=== PATIENT | male | born 1965 | race Caucasian/White ===

== ENCOUNTER 2025-03-07 10:27 | Outpatient (CLI) | payer OTHER, SELFPAY ==
--- OUTSIDE RECORDS SUMMARY | 2025-03-07 11:08 | XMS_ITS | Clinical Summary ---
Author Organization [facility] Address [address] [place] [id number] Care Team Providers Care Rural Route Mail Carrier Name Role Phone Unavailable Primary Care Provider Unavailabl e Social History Tobacco Use Types Packs/Day Years Used Date Smoking Tobacco: Never Assessed Sex and Gender Information Value Date Recorded Sex Assigned at Not on file Legal Sex Male 9:19 PM CDT Gender Identity Not on file Sexual Orientation Not on file Plan of Treatment Health Maintenance Due Date Last Done Comments Colorectal Cancer Screening Colonoscopy (10 Years) 1964 Annual Physical 1967 Hepatitis C 1982 DTaP, Tdap and Td Vaccines ( 1 - Tdap) 1983 Zoster Vaccines (1 of 2) 2014 COVID-19 Vaccine ( - 2023-2 5 season) 2024 RSV Immunization or 60+ Years (1 - 1-dose 75+ series) 2039 Meningococcal B Vaccine Aged Out No l onger eligible based on patient's age to complete this topic Meningococcal Vaccine Aged Out No rosalind riya eligible based on patient's age to complete this topic Pneumococcal Vaccine: Pediat rics (0 to 5 Years) and At-Risk Patients (6 to 64 Years) Aged Out No longer eligible b ased on patient's age to complete this topic RSV Immunizations Under 20 Months Aged Out No longer eligible based on patient's age to complete this topic
--- OUTSIDE RECORDS SUMMARY | 2025-03-07 11:08 | XMS_ITS | Continuity of Care Document ---
Author Organization [facility] Address [address] [address] Phone Care Team Providers Care Business Planning Manager Name Role Phone Cachorro Rao MD Unavailable Unavailable Allergies, Adverse Reactions, Alerts Substance Reaction Status Criticality No Known Allergies Active No Inform ation Medications Medication Instructions Dosage Effective Dates (start - stop) Status Comments indomethacin 50 mg capsule take 1 capsule by oral route every day with food 50 MG - Active phenytoin sodium extended 100 mg capsule take 1 capsule by oral route 3 times every day 100 MG - Active allopurinol 300 mg tablet take 1 tablet by oral route every day 300 MG - Active cyclobenzaprine 10 mg tablet take 1 tablet by oral route 3 times every day 10 MG - Active avoid driving or operate machines Neurontin 300 mg capsule take 1 capsule by oral route 3 times every day 300 MG - Active avoid driving or operate machines Lasix 20 mg tablet take 1 tablet by oral route every day 20 MG - Active trazodone 50 mg tablet take 1 tablet by oral route every bedtime after meals 50 MG - Active qhs for insomnia hydrocodone 10 mg-acetaminophen 325 mg tablet take 1 by Oral route every day as needed 1 - Active PRN for pain, avoid driving or operate machines Procedures Procedure Date OFFICE/OUTPATIENT VISIT, EST Advance Directives Directive Yes / No Effective Date File Name No Information Encounters Encounter Description Practice Location Reason(s) For Visit Diagnoses Date Provider Providers Copied on Encounter OFFICE/OUTPA TIENT VISIT, EST [facility], [place], [address], [place], [id number], [place] tel:[phone] [facility] Medicine seizure1 (chief complaint) gout1 (chief complaint) edema1 (chief complaint) insomnia1 (chief complaint) back pain1 (chief complaint) Epilepsy NOSGoutEdemaOther insomniaChronic pain syndromeIdiopathic peripheral autonomic neuropathy [address] Jalen Ivory. [address], [address], [place], [place], [id number] , [place]. tel:[phone] Family History Family Member Type Diagnosis Age At Onset Mother Problem of CVA 65, HTN Father Problem of 74 old age Sister Problem of PVD complicated surg agustina 63 Payers Payer name Insurance type Covered libertarian ID Sahil ochoa(s) [facility] CI [id number] Social History Type Description Quantity Date Captured Comments Alcohol Use Details Caffeine Use Details Unknown Tobacco Use Status Current non-smoker Smoking Status Never smoker Non-Smoking Tobacco Use Details : No Details Available : No Details Available Sex Male Vital Signs Date / Time: Height Weight BMI Pulse Rate Blood Pressure Temperature Respiratory Rate Body Surface Area Head Circumference BMI percentile Pulse Ox Inhaled Ox 11:01 AM 69.00 in 207.60 lbs 30.6 6 kg/m eter (2) 59 /min 110/70 mm[Hg] 98.2 F 16 /min Chief Complaint And Reason For Visit From encounter dated '03/03/2025 11:01'. seizure1 (chief complaint). Description: Pt has history of epilepsy Pt has not had seizure for over5 years .Pt is on phenytoin. gout1 (chief complaint). Description: Pt has chronic gout Pt takes allopurnolol daily. Pt had last gout attack one month ago. edema1 (chief complaint). Description: Pt has LE edema Pt takes lasix daily and donig ok insomnia1 (chief complaint). Description: Pt has chronic insomnia Pt takes trazodone qhs and doing ok back pain1 (chief complaint). Description: Pt has chronic low back pain with neuropathy both feet. Pt takes flexeril and neurontin and norco PRN. His previous doctor left and he has not seen doctor for over one year and he needs medication refilled. Pt states that he has severe arthritis around hisback. Pt denies any loss of bowel or bladder control or saddle area paresthesia Pt has bilateral neuropathy both feet chronically Pt feels cold feet .Pt denies any discoloration or any claudication. Plan Of Treatment Date Type Action Status Appointment Thom Vallejo BOOKED History Of Present Illness Encounter Date Complaint History Of Prese nt Illness back pain1 Pt has chronic l ow back pain with neuropathy both feet. Pt takes flexeril and neurontin and norco PRN. His previous doctor left and he has not seen doctor for over one year and he needs medication refilled. Pt states that he has severe arthritis around his back. Pt denies any loss of bowel or bladder control or saddle area paresthesia Pt has bilateral neuropathy both feet chronically Pt feels cold feet .Pt denies any discoloration or any claudication. insomnia1 Pt has chronic i nsomnia Pt takes trazodone qhs and doing ok edema1 Pt has LE edema Pt takes lasix daily and donig ok gout1 Pt has chronic g out Pt takes allopurnolol daily. Pt had last gout attack one month ago. seizure1 Pt has history o f epilepsy Pt has not had seizure for over 5 years .Pt is on phenytoin. Instructions Date Instruction Additional Infor anandaion No Information Assessments Type Assessment Date assessment Epilepsy NOS assessment Gout assessment Edema assessment Other insomnia assessment Chronic pain syndrome assessment Idiopathic peripheral autonomic neuropathy Mental Status Date Cognitive Assessment Orientation - [place] ed to time, place, person, situation.Normal Orientation
--- OUTSIDE RECORDS SUMMARY | 2025-03-07 11:09 | XMS_ITS | Clinical Summary ---
Author Organization [facility] Address [address] [place] [address] Care Team Providers Care Trust Officer Name Role Phone Ana Lilia Roman MD Primary Care Provider [phone] Source Comments [facility],non-owned Affiliates and Associated Physician Practices is amultpeoples hospitale site organization consisting of ambulatory clinics and hospital sitesin [place], [place], [place] and [place]. This disclosure is being madepursuant to the Care Everywhere program and may not contain all information available regarding this patient. Last updated 18.[facility] Allergies No known active allergies Medications * Be aware that medications may not be up to date on this document. Alwaysverify current medications with the patient. Medication Sig Dispensed Refills Start Date End Date Status albuterol HFA (Proventil; Ventolin; Proair) 108 (90 Base) MCG/ACT inhaler albuterol sulfate HFA 90 mcg/actuation aerosol inhaler INHALE 2 PUFFS BY MOUTH EVERY 4 HOURS NEEDED Active allopurinol (Zyloprim) 300 MG tablet allopurinol 300 mg tablet Active amLODIPine (Norvasc) 5 MG tablet amlodipine 5 mg tablet TAKE 1 TABLET BY MOUTH EVERY DAY Active cyclobenzaprine (Flexeril) 10 MG tablet Take 1 (one) tablet by mouth 3 times daily 09/05/2022 Active furosemide (Lasix) 20 MG tablet furosemide 20 mg tablet Active gabapentin (Neurontin) 300 MG capsule Take 2 (two) capsules by mouth 3 times daily 09/05/2022 Active HYDROcodone-acetami nophen ([place]) 10-325 MG tablet Take 1 (one) tablet by mouth every 6 hours as needed pain 10/25/2022 Active indomethacin (Indocin) 50 MG capsule indomethacin 50 mg capsule TAKE 1 CAPSULE BY MOUTH THREE TIMES DAILY Active naproxen (Naprosyn) 500 MG tablet naproxen 500 mg tablet TAKE 1 TABLET BY MOUTH TWICE DAILY Active pantoprazole EC (Protonix) 40 MG tablet pantoprazole 40 mg tablet,delayed release TAKE 1 TABLET BY MOUTH EVERY DAY Active phenytoin ER (Dilantin) 100 MG capsule Take 1 (one) capsule by mouth 3 times daily 12/12/2021 Active traZODone (Desyrel) 50 MG tablet trazodone 50 mg tablet Active Active Problems Problem Noted Date Diagnosed Date Dizziness 11/15/2022 Essential hypertension 11/15/2022 Gastroesophageal reflux disease 11/15/2022 Gout 11/15/2022 Hypertriglyceridemia 11/15/2022 Neuropathy 11/15/2022 Osteoarthrosis 11/15/2022 Seizure 11/15/2022 Chronic pancreatitis 09/10/2017 Social History Tobacco Use Types Packs/Day Years Used Date Smoking Tobacco: Never Passive Smoke Exposure: Past Smokeless Tobacco: Never Tobacco Cessation:Counseling Given: Not Answered Alcohol Use Standard Drinks/Week Comments Yes 0 (1 standard drink = 0.6 oz pur e alcohol) weekly Sex and Gender Information Value Date Recorded Sex Assigned at Not on file Gender Identity Not on file Sexual Orientation Not on file Last Filed Vital Signs Vital Sign Reading Time Taken Comments Blood Pressure 135/84 11/14/2022 1:08 PM DRAPERY INSTALLER Pulse 67 11/14/2022 1:08 PM DRAPERY INSTALLER Temperature 36.8 C (98.2 F) 11/14/2022 1:08 PM DRAPERY INSTALLER Respiratory Rate - - Oxygen Saturation 100% 11/14/2022 1:08 PM DRAPERY INSTALLER Inhaled Oxygen Concentration - - Weight 92.5 kg (204 lb) 11/14/2022 1:08 PM DRAPERY INSTALLER Height 175.3 cm (5' 9 ) 11/14/2022 1:08 PM DRAPERY INSTALLER Body Mass Index 30.13 11/14/2022 1:08 PM DRAPERY INSTALLER Plan of Treatment Health Maintenance Due Date Last Done Comments COLOGUARD (AGES 45-75) - COL ON CA SCREENING 1964 COLON MONITORING 1964 COLONOSCOPY - COLON CA SCREENING 1964 CT COLONOGRAPHY - COLON CA SCREENING 1964 Colorectal Cancer Screening 1964 FIT - COLON CA SCREENING 1964 FLEX SIG - COLON CA SCREENING 1964 LIPID TESTING 1964 HIV SCREENING 1979 HEPATITIS C SCREENING 11/15/1982 DTAP/TDAP/TD VACCINES (1 - Tdap) 1983 PNEUMOCOCCAL VACCINE 50+ (1 of 1 - PCV) 2014 ZOSTER VACCINE (1 of 2) 2014 SCREENING FOR DIABETES 11/14/2022 COVID-19 VACCINE (1 - 2023-2 5 season) 2024 DEPRESSION SCREENING 11/27/2024 INFLUENZA VACCINE (Season Ended) 2025 Respiratory Syncytial Virus (RSV) Vaccine Pt: or over 60 yrs (1 - 1-dose 75+ series) 2039 HEPATITIS B VACCINE Aged Out No longe r eligible based on patient's age to complete this topic HIB VACCINE Aged Out No longer eligi ble based on patient's age to complete this topic HPV VACCINE Aged Out No longer eligi ble based on patient's age to complete this topic MENINGOCOCCAL (Group B) VACC INE SHARED DECISION-MAKING Aged Out No longer eligibl e based on patient's age to complete this topic MENINGOCOCCAL GROUPS A/C/Y/W VACCINE Aged Out No longer eligible b ased on patient's age to complete this topic PNEUMOCOCCAL VACCINE Aged Out No long er eligible based on patient's age to complete this topic Care Teams Trust Officer Relationship Specialty Start Date End Date Ana Lilia Roman MD [address] [place] [address] [place] [address] PCP - General 09/19/22
--- OUTSIDE RECORDS SUMMARY | 2025-03-07 11:09 | XMS_ITS | Data Portability ---
Author Organization [facility] [employer], Main Office Address [address] [place] [address] Assessment No assessment recorded. Plan of Treatment Reminders Order Date Submit Date Provider Last Modified By Organization Details Last Modified Time Details Appointments None recorded. Lab uric acid, serum or plasma 2023 024 [email or web address] 4 [facility] (Lab), [address] [place], [address], 11:39:20 lipid panel, serum 2023 024 [email or web address] 4 [facility] (Lab), [address] [place], [address], 11:39:36 hepatic function panel, serum 2023 024 4 [facility] (Lab), [address] [place], [address], 11:39:53 PSA, serum or plasma 2023 024 4 [facility] (Lab), [address] [place], [address], 11:40:31 vitamin D, 25-hydroxy, total, serum 2023 024 [email or web address] 4 [facility] (Lab), [address] [place], [address], 11:40:11 ESR (erythrocyt e sedimentati on rate), blood 2023 024 [email or web address] 4 [facility] (Lab), [address] [place], [address], 4 11:43:18 rf (rheumatoid factor), serum 2023 024 4 [facility] (Lab), [address] [place], [address], 4 11:43:34 BRADY (antinuclea r antibodies) screen, serum 2023 024 [email or web address] 4 [facility] (Lab), [address] [place], [address], 4 11:43:52 BMP, serum or plasma 2023 024 [email or web address] [address] 4 [facility] (Lab), [address] [place], [address], 4 11:39:02 ferritin, serum or plasma 2023 024 [email or web address] [address] 4 [facility] (Lab), [address] [place], [address], 4 11:40:50 iron + total iron-bindin g capacity (TIBC), serum 2023 024 [email or web address] [address] 4 [facility] (Lab), [address] [place], [address], 4 11:42:39 CBC w/ auto diff 2023 024 [place] [address] 4 [facility] (Lab), [address] [place], [address], 4 11:42:56 uric acid, serum or plasma 2022 023 [email or web address] 477 [facility] (Lab), [address] [place], [address], 3 07:53:51 lipase, serum or plasma [email or web address] [place] [address] (Lab), [address] [place], [address], 3 07:53:52 amylase, serum or plasma [email or web address] [place] [address] (Lab), [address] [place], [address], 3 07:53:52 lipid panel, serum [address] (Lab), [address] [place], [address], 3 07:53:52 hepatic function panel, serum [email or web address] [place] [address] (Lab), [address] [place], [address], 3 07:53:52 PSA, serum or plasma [address] (Lab), [address] [place], [address], 3 07:53:52 vitamin D, 25-hydroxy, total, serum 2022 0[address] [email or web address] [place] [address] (Lab), [address] [place], [address], 3 07:53:52 BMP, serum or plasma 2022 [facility]23 [facility] [place] [address] (Lab), [address] [place], [address], 3 07:53:51 ferritin, serum or plasma [address] (Lab), [address] [place], [address], 3 07:53:51 iron + total iron-bindin g capacity (TIBC), serum [address] (Lab), [address] [place], [address], 3 07:53:51 CBC w/ auto diff [address] (Lab), [address] [place], [address], 3 07:53:51 Referral ophthalmolo gist referral - Please call patient to schedule an appointment 2023 024 [email or web address] [employer], [address] , [place], [address], 4 08:56:56 otolaryngol ogist referral 2022 023 [email or web address] 3 Abdulaziz Bowers MD, [address], [place], [address], 3 13:52:37 Procedures None recorded. Surgeries None recorded. Imaging None recorded. Medication Orders hydrocodone 10 mg-acetamin ophen 325 mg tablet 2023 024 [id number], [address], [place], [id number], 4 10:56:06 cephalexin 500 mg capsule 2023 024 [email or web address] [facility]40528, [address], [place], [id number], 4 07:47:03 triamcinolo ne acetonide 0.1 % topical cream 2023 024 [facility]28997, [address], [place], [id number], 4 10:56:03 prednisone 20 mg tablet 2023 024 [facility] #83959, [address], [place], [id number], 4 10:56:04 hydrocodone 10 mg-acetamin ophen 325 mg tablet 2022 023 [facility] #95497, [address], [place], [id number], 3 12:45:05 amoxicillin 875 mg tablet 2022 023 [email or web address] [facility] #36845, [address], [place], [id number], 4 10:47:24 Patient TargetsNo targets recorded. Patient InstructionsNo instructions recorded. 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 sinusitis Referring Physician: Ana Lilia Roman [facility] Medicine, Encounter Date: 07/05/2023 Strategic Planning Manager Referral for Pain of left eye Please call patient to schedule an appointment Referring Physician: Ana Lilia Roman [facility] Medicine, Encounter Date: 02/07/2024 Results Created Date Observation Date Name Description Value Unit Range Abnormal Flag Note LastModifiedBy Organization Detail LastModifiedTime 10/24/20 22 10/24/2022 THAO TIN ferritin 137 NG/mL 17.9-4 64 Not Available [facility] (Lab) [address] [place], [address], 10/24/2022 22:50:00 10/24/20 22 10/24/2022 PSA SCREE N PSA medicare screen 2.28 NG/mL 0.00-4 .00 Not Available [facility] (Lab) [address] [place], [address], 10/24/2022 22:22:26 10/24/20 22 10/24/2022 IRON/ TIBC PANEL total iron binding capacity 332 mcg/d L 265-47 5 Not Available [facility] (Lab) [address] [place], [address], 10/24/2022 22:09:27 10/24/20 22 10/24/2022 IRON/ TIBC PANEL % transferrin saturation 23 % 20-55 Not Available [facility] (Lab) [address] [place], [address], 10/24/2022 22:09:27 10/24/20 22 10/24/2022 IRON/ TIBC PANEL unsaturated iron bind capacity 257 mcg/d L 126-38 2 Not Available [facility] (Lab) [address] [place], [address], 10/24/2022 22:09:27 10/24/20 22 10/24/2022 IRON/ TIBC PANEL iron 75 mcg/d L 42-175 Not Available [facility] (Lab) [address] [place], [address], 10/24/2022 22:09:27 10/24/20 22 10/24/2022 VITAM IN D 25-HY DROXY [id number] 30.8 NG/mL 30-100 Vitam in D Statu s: Defic ient: <20 ng/mL Insuf ficie nt: 20-29 ng/mL Suffi cient : 30-10 0 ng/mL Not Available [facility] (Lab) [address] [place], [address], 10/24/2022 22:08:47 10/24/20 22 10/24/2022 CBC/C OMPLE TE BLD COUNT W/DIF F white blood cells 6.9 x10'3 /uL 4.2-10 .8 Not Available [facility] (Lab) [address] [place], [address], 10/24/2022 21:59:07 10/24/20 22 10/24/2022 CBC/C OMPLE TE BLD COUNT W/DIF F red blood cells 4.69 x10'6 /uL 4.10-5 .80 Not Available [facility] (Lab) [address] [place], [address], 10/24/2022 21:59:07 10/24/20 22 10/24/2022 CBC/C OMPLE TE BLD COUNT W/DIF F hemoglobin 14.4 g/dL 13.2-1 7.0 Not Available [facility] (Lab) [address] [place], [address], 10/24/2022 21:59:07 10/24/20 22 10/24/2022 CBC/C OMPLE TE BLD COUNT W/DIF F hematocrit 43.6 % 39.3-5 0.0 Not Available [facility] (Lab) [address] [place], [address], 10/24/2022 21:59:07 10/24/20 22 10/24/2022 CBC/C OMPLE TE BLD COUNT W/DIF F mean red cell volume 93.0 fL 80.0-9 7.0 Not Available [facility] (Lab) [address] [place], [address], 10/24/2022 21:59:07 10/24/20 22 10/24/2022 CBC/C OMPLE TE BLD COUNT W/DIF F mean red cell hemoglobin 30.7 pg 27.0-3 3.0 Not Available [facility] (Lab) [address] [place], [address], 10/24/2022 21:59:07 10/24/20 22 10/24/2022 CBC/C OMPLE TE BLD COUNT W/DIF F mean RBC HGB concentratio n 33.0 g/dL 31.0-3 6.0 Not Available [facility] (Lab) [address] [place], [address], 10/24/2022 21:59:07 10/24/20 22 10/24/2022 CBC/C OMPLE TE BLD COUNT W/DIF F red cell distribution width 14.0 % 11.8-1 5.5 Not Available [facility] (Lab) [address] [place], [address], 10/24/2022 21:59:07 10/24/20 22 10/24/2022 CBC/C OMPLE TE BLD COUNT W/DIF F platelets 206 x10'3 /uL 150-40 0 Not Available [facility] (Lab) [address] [place], [address], 10/24/2022 21:59:07 10/24/20 22 10/24/2022 CBC/C OMPLE TE BLD COUNT W/DIF F mean platelet volume 11.5 fL 9.0-12 .4 Not Available [facility] (Lab) [address] [place], [address], 10/24/2022 21:59:07 10/24/20 22 10/24/2022 CBC/C OMPLE TE BLD COUNT W/DIF F neutrophils 64.0 % 39.0-7 2.0 Not Available [facility] (Lab) [address] [place], [address], 10/24/2022 21:59:07 10/24/20 22 10/24/2022 CBC/C OMPLE TE BLD COUNT W/DIF F lymphocytes 24.9 % 16.0-4 7.0 Not Available [facility] (Lab) [address] [place], [address], 10/24/2022 21:59:07 10/24/20 22 10/24/2022 CBC/C OMPLE TE BLD COUNT W/DIF F monocytes 7.5 % 5.0-12 .0 Not Available [facility] (Lab) [address] [place], [address], 10/24/2022 21:59:07 10/24/20 22 10/24/2022 CBC/C OMPLE TE BLD COUNT W/DIF F eosinophils 2.7 % 1.0-7. 0 Not Available [facility] (Lab) [address] [place], [address], 10/24/2022 21:59:07 10/24/20 22 10/24/2022 CBC/C OMPLE TE BLD COUNT W/DIF F basophils 0.6 % 0.0-2. 0 Not Available [facility] (Lab) [address] [place], [address], 10/24/2022 21:59:07 10/24/20 22 10/24/2022 CBC/C OMPLE TE BLD COUNT W/DIF F immature granulocytes 0.3 % 0.00-0 .50 Not Available [facility] (Lab) [address] [place], [address], 10/24/2022 21:59:07 10/24/20 22 10/24/2022 CBC/C OMPLE TE BLD COUNT W/DIF F neutrophils, absolute count 4.44 x10'3 /uL 1.5-8. 0 Not Available [facility] (Lab) [address] [place], [address], 10/24/2022 21:59:07 10/24/20 22 10/24/2022 CBC/C OMPLE TE BLD COUNT W/DIF F lymphocytes, absolute count 1.73 x10'3 /uL 1.07-3 .43 Not Available [facility] (Lab) [address] [place], [address], 10/24/2022 21:59:07 10/24/20 22 10/24/2022 CBC/C OMPLE TE BLD COUNT W/DIF F monocytes, absolute count 0.52 x10'3 /uL 0.29-0 .99 Not Available [facility] (Lab) [address] [place], [address], 10/24/2022 21:59:07 10/24/20 22 10/24/2022 CBC/C OMPLE TE BLD COUNT W/DIF F eosinophils, absolute count 0.19 x10'3 /uL 0.02-0 .53 Not Available [facility] (Lab) [address] [place], [address], 10/24/2022 21:59:07 10/24/20 22 10/24/2022 CBC/C OMPLE TE BLD COUNT W/DIF F basophils, absolute count 0.04 x10'3 /uL 0.01-0 .08 Not Available [facility] (Lab) [address] [place], [address], 10/24/2022 21:59:07 10/24/20 22 10/24/2022 CBC/C OMPLE TE BLD COUNT W/DIF F immature granulocytes ,absolute 0.02 x10'3 /uL 0.00-0 .05 Not Available [facility] (Lab) [address] [place], [address], 10/24/2022 21:59:07 10/24/20 22 10/24/2022 CBC/C OMPLE TE BLD COUNT W/DIF F nucleated red blood cells 0.0 % -0 Not Available [facility] (Lab) [address] [place], [address], 10/24/2022 21:59:07 10/24/20 22 10/24/2022 CBC/C OMPLE TE BLD COUNT W/DIF F NRBC# 0.00 x10'3 /uL Not Available [facility] (Lab) [address] [place], [address], 10/24/2022 21:59:07 10/24/20 22 10/24/2022 HEPAT IC/LI LOW PANEL alkaline phosphatase 82 U/L 38-126 Not Available [facility] (Lab) [address] [place], [address], 10/24/2022 21:48:00 10/24/20 22 10/24/2022 HEPAT IC/LI LOW PANEL alanine aminotransfe rase 21 U/L 0-50 Not Available [facility] (Lab) [address] [place], [address], 10/24/2022 21:48:00 10/24/20 22 10/24/2022 HEPAT IC/LI LOW PANEL aspartate aminotransfe rase 21 U/L 15-46 Not Available [facility] (Lab) [address] [place], [address], 10/24/2022 21:48:00 10/24/20 22 10/24/2022 HEPAT IC/LI LOW PANEL bilirubin, total 0.40 mg/dL 0.20-1 .30 Not Available [facility] (Lab) [address] [place], [address], 10/24/2022 21:48:00 10/24/20 22 10/24/2022 HEPAT IC/LI LOW PANEL bilirubin, conjugated (direct) 0.00 mg/dL 0.00-0 .30 Not Available [facility] (Lab) [address] [place], [address], 10/24/2022 21:48:00 10/24/20 22 10/24/2022 HEPAT IC/LI LOW PANEL biliurubin,u ncong. (indirect) 0.20 mg/dL 0.00-1 .1 Not Available [facility] (Lab) [address] [place], [address], 10/24/2022 21:48:00 10/24/20 22 10/24/2022 HEPAT IC/LI LOW PANEL total protein 6.3 g/dL 6.3-8. 2 Not Available [facility] (Lab) [address] [place], [address], 10/24/2022 21:48:00 10/24/20 22 10/24/2022 HEPAT IC/LI LOW PANEL albumin 3.9 g/dL 3.4-5. 0 Not Available [facility] (Lab) [address] [place], [address], 10/24/2022 21:48:00 10/24/20 22 10/24/2022 HEPAT IC/LI LOW PANEL globulin 2.4 g/dL 2.6-4. 2 low Not Available [facility] (Lab) [address] [place], [address], 10/24/2022 21:48:00 10/24/20 22 10/24/2022 HEPAT IC/LI LOW PANEL A/G ratio 1.6 ratio 1.0-2. 0 Not Available [facility] (Lab) [address] [place], [address], 10/24/2022 21:48:00 10/24/20 22 10/24/2022 LIPID PANEL cholesterol 177 mg/dL 140-19 9 NIH TRACY NSUS RECOM MENDA TION FOR KALEB STERO L: ADULT CHILD LOW RISK: <200 <170 BORDE RLINE : <200- 239 ----- HIGH RISK: >240 >200 Not Available [facility] (Lab) [address] [place], [address], 10/24/2022 21:47:37 10/24/20 22 10/24/2022 LIPID PANEL triglyceride s 102 mg/dL 0-150 NIH TRACY NSUS REPOR T RECOM MENDA TION FOR TRIGL YCERI ANTHONY: ADULT CHILD LOW RISK: <150 ----- BODER LINE: 150-1 99 ----- HIGH RISK: >200 ----- Not Available [facility] (Lab) [address] [place], [address], 10/24/2022 21:47:37 10/24/20 22 10/24/2022 LIPID PANEL HDL cholesterol 62 mg/dL 40- Not Available [facility] (Lab) [address] [place], [address], 10/24/2022 21:47:37 10/24/20 22 10/24/2022 LIPID PANEL LDL cholesterol, calculated 95 mg/dL 0-130 NIH TRACY NSUS REPOR T RECOM MENDA TIONS FOR LDL: ADULT CHILD LOW RISK <130 <110 (OPTI MAL LDL) <100 ----- BORDE RLINE : 130-1 59 ----- HIGH RISK: >160 >130 A TRIGL YCERI DE RESUL T >400 INVAL IDATE S THE CALCU LATIO N FOR LDL FRACT IONAT ION - THE LDL RESUL T WILL NOT BE REPOR FERNANDO. Not Available [facility] (Lab) [address] [place], [address], 10/24/2022 21:47:37 10/24/20 22 10/24/2022 URIC ACID SERUM uric acid 7.7 mg/dL 3.5-8. 5 Not Available [facility] (Lab) [address] [place], [address], 10/24/2022 21:47:34 10/24/20 22 10/24/2022 BASIC METAB OLIC PANEL sodium 138 mmol/ L 137-14 5 Not Available [facility] (Lab) [address] [place], [address], 10/24/2022 21:47:32 10/24/20 22 10/24/2022 BASIC METAB OLIC PANEL potassium 4.5 mmol/ L 3.5-5. 1 Not Available [facility] (Lab) [address] [place], [address], 10/24/2022 21:47:32 10/24/20 22 10/24/2022 BASIC METAB OLIC PANEL chloride 109 mmol/ L 98-107 high Not Available [facility] (Lab) [address] [place], [address], 10/24/2022 21:47:32 10/24/20 22 10/24/2022 BASIC METAB OLIC PANEL carbon dioxide 22 mmol/ L 22-30 Not Available [facility] (Lab) [address] [place], [address], 10/24/2022 21:47:32 10/24/20 22 10/24/2022 BASIC METAB OLIC PANEL anion gap 11.5 mmol/ L 14-22 low Not Available [facility] (Lab) [address] [place], [address], 10/24/2022 21:47:32 10/24/20 22 10/24/2022 BASIC METAB OLIC PANEL glucose 106 mg/dL 70-99 high Not Available [facility] (Lab) [address] [place], [address], 10/24/2022 21:47:32 10/24/20 22 10/24/2022 BASIC METAB OLIC PANEL BUN 13 mg/dL 8-19 Not Available [facility] (Lab) [address] [place], [address], 10/24/2022 21:47:32 10/24/20 22 10/24/2022 BASIC METAB OLIC PANEL creatinine 1.02 mg/dL 0.66-1 .25 Not Available [facility] (Lab) [address] [place], [address], 10/24/2022 21:47:32 10/24/20 22 10/24/2022 BASIC METAB OLIC PANEL GFR >60 Refer ence Range : [place] ge GFR Healt hy Adult : >60 mL/mi n/1.7 3 m2 Chron ic Kidne y Disea se: 15-60 mL/mi n/1.7 3 m2 Kidne y Failu re: <15/m L/min /1.73 m2 www.n iddk. nih.g ov The MDRD study equat ion has not been valid ated in child bony <18 years of age; pregn ant women ; the elder ly >85 years of age; or in some racia l or ethni c subgr oups, such as Hispa nics. Outsi de the valid ated tyrel eters , estim ated GFR is less accur ate, requi ring clini rashid judgm ent on a case- by-ca se basis . Clini rashid inter preta tion for other races and ages must be made by the clini arlet. The MDRD study equat ion has not been valid ated for the evalu ation of serum creat inine relat ed to nutri kelli l statu s or medic ation usage . For perso ns <18 years of age, a pedia tric GFR calcu lator is avail able on the F websi te: https ://ww w.kid jefferson.o rg/pr ofess ional s/kdo qi/gf r_cal culat or Not Available [facility] (Lab) [address] [place], [address], 10/24/2022 21:47:32 10/24/20 22 10/24/2022 BASIC METAB OLIC PANEL calcium 8.6 mg/dL 8.4-10 .2 Not Available [facility] (Lab) [address] [place], [address], 10/24/2022 21:47:32 02/07/20 24 02/07/2024 CBC/C OMPLE TE BLD COUNT W/DIF F white blood cells 7.1 x10'3 /uL 4.2-10 .8 Not Available [facility] (Lab) [address] [place], [address], 02/07/2024 19:09:31 02/07/20 24 02/07/2024 CBC/C OMPLE TE BLD COUNT W/DIF F red blood cells 4.77 x10'6 /uL 4.10-5 .80 Not Available [facility] (Lab) [address] [place], [address], 02/07/2024 19:09:31 02/07/20 24 02/07/2024 CBC/C OMPLE TE BLD COUNT W/DIF F hemoglobin 14.8 g/dL 13.2-1 7.0 Not Available [facility] (Lab) [address] [place], [address], 02/07/2024 19:09:31 02/07/2002/07/2024 CBC/C OMPLE TE BLD COUNT W/DIF F hematocrit 44.3 % 39.3-5 0.0 Not Available [facility] (Lab) [address] [place], [address], 02/07/2024 19:09:31 02/07/20 24 02/07/2024 CBC/C OMPLE TE BLD COUNT W/DIF F mean red cell volume 92.9 fL 80.0-9 7.0 Not Available [facility] (Lab) [address] [place], [address], 02/07/2024 19:09:31 02/07/20 24 02/07/2024 CBC/C OMPLE TE BLD COUNT W/DIF F mean red cell hemoglobin 31.0 pg 27.0-3 3.0 Not Available [facility] (Lab) [address] [place], [address], 02/07/2024 19:09:31 02/07/20 24 02/07/2024 CBC/C OMPLE TE BLD COUNT W/DIF F mean RBC HGB concentratio n 33.4 g/dL 31.0-3 6.0 Not Available [facility] (Lab) [address] [place], [address], 02/07/2024 19:09:31 03/13/20 24 02/07/2024 CBC/C OMPLE TE BLD COUNT W/DIF F red cell distribution width 13.8 % 11.8-1 5.5 Not Available [facility] (Lab) [address] [place], [address], 02/07/2024 19:09:31 02/07/20 24 02/07/2024 CBC/C OMPLE TE BLD COUNT W/DIF F platelets 178 x10'3 /uL 150-40 0 Not Available [facility] (Lab) [address] [place], [address], 02/07/2024 19:09:31 02/07/20 24 02/07/2024 CBC/C OMPLE TE BLD COUNT W/DIF F mean platelet volume 11.9 fL 9.0-12 .4 Not Available [facility] (Lab) [address] [place], [address], 02/07/2024 19:09:31 02/07/20 24 02/07/2024 CBC/C OMPLE TE BLD COUNT W/DIF F neutrophils 65.4 % 39.0-7 2.0 Not Available [facility] (Lab) [address] [place], [address], 02/07/2024 19:09:31 02/07/20 24 02/07/2024 CBC/C OMPLE TE BLD COUNT W/DIF F lymphocytes 24.4 % 16.0-4 7.0 Not Available [facility] (Lab) [address] [place], [address], 02/07/2024 19:09:31 02/07/20 24 02/07/2024 CBC/C OMPLE TE BLD COUNT W/DIF F monocytes 7.0 % 5.0-12 .0 Not Available [facility] (Lab) [address] [place], [address], 02/07/2024 19:09:31 03/13/20 24 02/07/2024 CBC/C OMPLE TE BLD COUNT W/DIF F eosinophils 2.4 % 1.0-7. 0 Not Available [facility] (Lab) [address] [place], [address], 02/07/2024 19:09:31 02/07/20 24 02/07/2024 CBC/C OMPLE TE BLD COUNT W/DIF F basophils 0.7 % 0.0-2. 0 Not Available [facility] (Lab) [address] [place], [address], 02/07/2024 19:09:31 02/07/20 24 02/07/2024 CBC/C OMPLE TE BLD COUNT W/DIF F immature granulocytes 0.1 % 0.00-0 .50 Not Available [facility] (Lab) [address] [place], [address], 02/07/2024 19:09:31 02/07/20 24 02/07/2024 CBC/C OMPLE TE BLD COUNT W/DIF F neutrophils, absolute count 4.65 x10'3 /uL 1.5-8. 0 Not Available [facility] (Lab) [address] [place], [address], 02/07/2024 19:09:31 02/07/20 24 02/07/2024 CBC/C OMPLE TE BLD COUNT W/DIF F lymphocytes, absolute count 1.74 x10'3 /uL 1.07-3 .43 Not Available [facility] (Lab) [address] [place], [address], 02/07/2024 19:09:31 02/07/20 24 02/07/2024 CBC/C OMPLE TE BLD COUNT W/DIF F monocytes, absolute count 0.50 x10'3 /uL 0.29-0 .99 Not Available [facility] (Lab) [address] [place], [address], 02/07/2024 19:09:31 02/07/20 24 02/07/2024 CBC/C OMPLE TE BLD COUNT W/DIF F eosinophils, absolute count 0.17 x10'3 /uL 0.02-0 .53 Not Available [facility] (Lab) [address] [place], [address], 02/07/2024 19:09:31 02/07/20 24 02/07/2024 CBC/C OMPLE TE BLD COUNT W/DIF F basophils, absolute count 0.05 x10'3 /uL 0.01-0 .08 Not Available [facility] (Lab) [address] [place], [address], 02/07/2024 19:09:31 02/07/20 24 02/07/2024 CBC/C OMPLE TE BLD COUNT W/DIF F immature granulocytes ,absolute 0.01 x10'3 /uL 0.00-0 .05 Not Available [facility] (Lab) [address] [place], [address], 02/07/2024 19:09:31 02/07/20 24 02/07/2024 CBC/C OMPLE TE BLD COUNT W/DIF F nucleated red blood cells 0.0 % -0 Not Available [facility] (Lab) [address] [place], [address], 02/07/2024 19:09:31 02/07/20 24 02/07/2024 CBC/C OMPLE TE BLD COUNT W/DIF F NRBC# 0.00 x10'3 /uL Not Available [facility] (Lab) [address] [place], [address], 02/07/2024 19:09:31 02/07/20 24 02/07/2024 IRON/ TIBC PANEL total iron binding capacity 326 mcg/d L 265-47 5 Not Available [facility] (Lab) [address] [place], [address], 02/07/2024 19:34:19 02/07/20 24 02/07/2024 IRON/ TIBC PANEL % transferrin saturation 25 % 20-55 Not Available [facility] (Lab) [address] [place], [address], 02/07/2024 19:34:19 02/07/20 24 02/07/2024 IRON/ TIBC PANEL unsaturated iron bind capacity 244 mcg/d L 126-38 2 Not Available [facility] (Lab) [address] [place], [address], 02/07/2024 19:34:19 02/07/20 24 02/07/2024 IRON/ TIBC PANEL iron 82 mcg/d L 42-175 Not Available [facility] (Lab) [address] [place], [address], 02/07/2024 19:34:19 02/07/20 24 02/07/2024 RHEUM ATOID FACTO R rf <8.6 IU/mL 0.0-11 .9 Not Available [facility] (Lab) [address] [place], [address], 02/07/2024 19:20:00 02/07/20 24 02/07/2024 BASIC METAB OLIC PANEL sodium 137 mmol/ L 137-14 5 Not Available [facility] (Lab) [address] [place], [address], 02/07/2024 19:20:35 02/07/20 24 02/07/2024 BASIC METAB OLIC PANEL potassium 4.6 mmol/ L 3.5-5. 1 Not Available [facility] (Lab) [address] [place], [address], 02/07/2024 19:20:35 02/07/20 24 02/07/2024 BASIC METAB OLIC PANEL chloride 109 mmol/ L 98-107 high Not Available [facility] (Lab) [address] [place], [address], 02/07/2024 19:20:35 02/07/20 24 02/07/2024 BASIC METAB OLIC PANEL carbon dioxide 24 mmol/ L 22-30 Not Available [facility] (Lab) [address] [place], [address], 02/07/2024 19:20:35 02/07/20 24 02/07/2024 BASIC METAB OLIC PANEL anion gap 8.6 mmol/ L 14-22 low Not Available [facility] (Lab) [address] [place], [address], 02/07/2024 19:20:35 02/07/20 24 02/07/2024 BASIC METAB OLIC PANEL glucose 108 mg/dL 70-99 high Not Available [facility] (Lab) [address] [place], [address], 02/07/2024 19:20:35 02/07/20 24 02/07/2024 BASIC METAB OLIC PANEL BUN 14 mg/dL 8-19 Not Available [facility] (Lab) [address] [place], [address], 02/07/2024 19:20:35 02/07/20 24 02/07/2024 BASIC METAB OLIC PANEL creatinine 1.00 mg/dL 0.66-1 .25 Not Available [facility] (Lab) [address] [place], [address], 02/07/2024 19:20:35 02/07/20 24 02/07/2024 BASIC METAB OLIC PANEL GFR >60 Refer ence Range : [place] ge GFR Healt hy Adult : >60 mL/mi n/1.7 3 m2 Chron ic Kidne y Disea se: 15-60 mL/mi n/1.7 3 m2 Kidne y Failu re: <15/m L/min /1.73 m2 [email or web address] nih.g ov The MDRD study equat ion has not been valid ated in child bony <18 years of age; pregn ant women ; the elder ly >85 years of age; or in some racia l or ethni c subgr oups, such as Frankie nics. Outsi de the valid ated tyrel eters , estim ated GFR is less accur ate, requi ring clini rashid judgm ent on a case- by-ca se basis . Clini rashid inter preta tion for other races and ages must be made by the clini arlet. The MDRD study equat ion has not been valid ated for the evalu ation of serum creat inine relat ed to nutri kelli l statu s or medic ation usage . For perso ns <18 years of age, a pedia tric GFR calcu lator is avail able on the [facility] websi te: [email or web address] :[email or web address] [email or web address] paulino.o rg/pr ofess ional s/kdo qi/gf r_cal culat or Not Available [facility] (Lab) [address] [place], [address], 02/07/2024 19:20:35 02/07/20 24 02/07/2024 BASIC METAB OLIC PANEL calcium 9.0 mg/dL 8.4-10 .2 Not Available [facility] (Lab) [address] [place], [address], 02/07/2024 19:20:35 02/07/20 24 02/07/2024 URIC ACID SERUM uric acid 7.1 mg/dL 3.5-8. 5 Not Available [facility] (Lab) [address] [place], [address], 02/07/2024 19:20:37 02/07/20 24 02/07/2024 LIPID PANEL cholesterol 179 mg/dL 140-19 9 NIH TRACY NSUS RECOM MENDA TION FOR KALEB STERO L: ADULT CHILD LOW RISK: <200 <170 BORDE RLINE : <200- 239 ----- HIGH RISK: >240 >200 Not Available [facility] (Lab) [address] [place], [address], 02/07/2024 19:20:40 02/07/20 24 02/07/2024 LIPID PANEL triglyceride s 61 mg/dL 0-150 NIH TRACY NSUS REPOR T RECOM MENDA TION FOR TRIGL YCERI ANTHONY: ADULT CHILD LOW RISK: <150 ----- BODER LINE: 150-1 99 ----- HIGH RISK: >200 ----- Not Available [facility] (Lab) [address] [place], [address], 02/07/2024 19:20:40 02/07/20 24 02/07/2024 LIPID PANEL HDL cholesterol 64 mg/dL 40- Not Available [facility] (Lab) [address] [place], [address], 02/07/2024 19:20:40 02/07/20 24 02/07/2024 LIPID PANEL LDL cholesterol, calculated 103 mg/dL 0-130 NIH TRACY NSUS REPOR T RECOM MENDA TIONS FOR LDL: ADULT CHILD LOW RISK <130 <110 (OPTI MAL LDL) <100 ----- MERLINEDE RLINE : 130-1 59 ----- HIGH RISK: >160 >130 A TRIGL YCERI DE RESUL T >400 INVAL IDATE S THE CALCU LATIO N FOR LDL FRACT IONAT ION - THE LDL RESUL T WILL NOT BE REPOR FERNANDO. Not Available [facility] (Lab) [address] [place], [address], 02/07/2024 19:20:40 02/07/20 24 02/07/2024 HEPAT IC/LI LOW PANEL alkaline phosphatase 83 U/L 38-126 Not Available [facility] (Lab) [address] [place], [address], 02/07/2024 19:20:42 02/07/20 24 02/07/2024 HEPAT IC/LI LOW PANEL alanine aminotransfe rase 21 U/L 0-50 Not Available [facility] (Lab) [address] [place], [address], 02/07/2024 19:20:42 02/07/20 24 02/07/2024 HEPAT IC/LI LOW PANEL aspartate aminotransfe rase 27 U/L 15-46 Not Available [facility] (Lab) [address] [place], [address], 02/07/2024 19:20:42 02/07/20 24 02/07/2024 HEPAT IC/LI LOW PANEL bilirubin, total 0.30 mg/dL 0.20-1 .30 Not Available [facility] (Lab) [address] [place], [address], 02/07/2024 19:20:42 02/07/20 24 02/07/2024 HEPAT IC/LI LOW PANEL bilirubin, conjugated (direct) 0.00 mg/dL 0.00-0 .30 Not Available [facility] (Lab) [address] [place], [address], 02/07/2024 19:20:42 02/07/20 24 02/07/2024 HEPAT IC/LI LOW PANEL biliurubin,u ncong. (indirect) 0.10 mg/dL 0.00-1 .1 Not Available [facility] (Lab) [address] [place], [address], 02/07/2024 19:20:42 02/07/20 24 02/07/2024 HEPAT IC/LI LOW PANEL total protein 6.7 g/dL 6.3-8. 2 Not Available [facility] (Lab) [address] [place], [address], 02/07/2024 19:20:42 02/07/20 24 02/07/2024 HEPAT IC/LI LOW PANEL albumin 4.1 g/dL 3.4-5. 0 Not Available [facility] (Lab) [address] [place], [address], 02/07/2024 19:20:42 02/07/20 24 02/07/2024 HEPAT IC/LI LOW PANEL globulin 2.6 g/dL 2.6-4. 2 Not Available [facility] (Lab) [address] [place], [address], 02/07/2024 19:20:42 02/07/20 24 02/07/2024 HEPAT IC/LI LOW PANEL A/G ratio 1.6 ratio 1.0-2. 0 Not Available [facility] (Lab) [address] [place], [address], 02/07/2024 19:20:42 02/07/20 24 02/07/2024 VITAM IN D 25-HY DROXY vd25oh 25.3 NG/mL 30-100 low Vitam in D Statu s: Defic ient: <20 ng/mL Insuf ficie nt: 20-29 ng/mL Suffi cient : 30-10 0 ng/mL Not Available [facility] (Lab) [address] [place], [address], 02/07/2024 19:35:55 02/07/20 24 02/07/2024 SEDIM ENTAT ION RATE erythrocyte sedimentatio n rate 8 mm/HR 0-20 Not Available [facility] (Lab) [address] [place], [address], 02/07/2024 19:41:24 02/07/20 24 02/07/2024 PSA SCREE N PSA medicare screen 2.53 NG/mL 0.00-4 .00 Not Available [facility] (Lab) [address] [place], [address], 02/07/2024 19:56:35 02/07/20 24 02/07/2024 THAO TIN ferritin 122 NG/mL 17.9-4 64 Not Available [facility] (Lab) [address] [place], [address], 02/07/2024 19:58:06 02/07/20 24 02/12/2024 BRADY BY IFA RFX TITER /VANESSA MARYANN antinuclear antibodies, ifa Positi ve abnormal Negat stuart <1:80 Borde rline 1:80 Posit stuart >1:80 Perfo rmed at: CB - [facility] n [address] [facility], [place] [id number] [facility] Lab Direc tor: Emre villanueva PhD, Phone : [phone] Not Available [facility] (Lab) [address] [place], [address], 02/12/2024 10:09:22 02/07/20 24 02/12/2024 BRADY BY IFA RFX TITER /VANESSA MARYANN homogeneous pattern 1:320 high ICAP nommercy quevedo re: AC-1 Not Available [facility] (Lab) [address] [place], [address], 02/12/2024 10:09:22 02/07/20 24 02/12/2024 BRADY BY IFA RFX TITER /VANESSA MARYANN anasp4 Commen t abnormal . [facility] ----- ----- --- ----- ----- ----- ----- ----- ----- ----- ----- ----- Homog eneou s Syste sharlene Lupus Eryth emato cooper, Drug Induc ed Syste sharlene Lupus Eryth emato cooper, Chron ic Autoi mmune hepat itis, Guero ile Idiop athic Arthr itis ----- ----- --- ----- ----- ----- ----- ----- ----- ----- ----- ----- Speck led Sjogr en Syndr ome, Syste sharlene Lupus Eryth emato cooper, Subac sarah Cutan eous Lupus , Neona ángel Lupus , Conge nital Heart Block , Mixed Conne ctive Tissu e Disea se, Scler oderm a-dif fuse, Scler oderm a-Aut oimmu ne Myosi tis Overl ap Syndr ome, Syste sharlene Lupus Eryth emato cooper-S clero derma -Auto immun e Myosi tis Overl ap Syndr ome, Syste sharlene Autoi mmune Rheum atic Disea se, Undif essence peterson Conne ctive Tissu e Disea se ----- ----- --- ----- ----- ----- ----- ----- ----- ----- ----- ----- Nucle olar Syste sharleen Scler osis, Scler oderm a-Aut oimmu ne Myosi tis Overl ap Syndr ome, Sjogr en Syndr ome, Miracle ud pheno dawn , Pulmo nary Arter ial Hyper tensi on, Syste sharlene Autoi mmune Rheum atic Disea se, Cance r ----- ----- --- ----- ----- ----- ----- ----- ----- ----- ----- ----- Centr omere Scler oderm a-CRE ST, Limit ed Cutan eous SSc, Miracle ud's Pheno dawn , Prima ry Bilia ry Chola ngiti s ----- ----- --- ----- ----- ----- ----- ----- ----- ----- ----- ----- Nucle ar Dot Prima ry Bilia ry Chola ngiti s ----- ----- --- ----- ----- ----- ----- ----- ----- ----- ----- ----- Nucle ar Prima ry Bilia ry Chola ngiti s, Autoi mmune Membr ane Hepat itis/ Liver disea se, Syste sharlene Autoi mmune Rheum atic Disea se, Autoi mmune Cytop enias , Linea r Scler oderm a, Antip hosph olipi d Syndr ome ----- ----- --- ----- ----- ----- ----- ----- ----- ----- ----- ----- Perfo rmed at: - [facility] [place] [facility] [address] [facility], [place] [id number] [facility] Lab Direc tor: Emre villanueva PhD, Phone : [phone] Not Available [facility] (Lab) [address] [place], [address], 02/12/2024 10:09:22 05/31/20 22 05/31/2022 MRI, lumba r spine , w/o contr ast [facility] [address] [place] [address] [phone] Ashok t Name: GARY Drew MITZI Cherelle Access ion #: [id number] Sex: M : 1964 2 Locati on: RAD Attend ing Physic sea: ALEXIS PFEIFFER Orderi Physic sea: ALEXIS PFEIFFER Exam Date: 05/31/20 22 9:41 AM Exam Name: MRI L SPINE WO Admitt ing Diagno sis(es ): RADIOL OGY REPORT - FINAL EXAM: MRI L SPINE WO HISTOR Y: low back pain 56-yea r-old male with low back pain, left lower extrem ity sciati ca sympto ms. COMPAR CELSA: Radiog raphs of the lumbar spine dated 2021. TECHNI QUE: Multip lanar multis equenc e noncon trast MR images of the lumbar spine were perfor med. FINDIN GS: No fractu re or listhe sis are identi fied in the lumbar spine. The conus termin ates at L1. T11-T1 2: There is loss of disc height . There is a circum ferent ial broad disc Page 1 of 4 [facility] Name: MITZI MISTYR Access ion #: [id number] Sex: M : 1964 2 Exam Date: 05/31/20 9:41 AM Exam Name: MRI L SPINE WO Admitt ing Diagno sis(es ): bulge with endpla te hypert rophy. There are Modic type 2 change s in the adjace nt endpla venus, greate r anteri dieter. There are Schmor l's nodes in the adjace nt endpla venus. There is a circum ferent ial broad disc bulge with endpla te hypert rophy. There is a bungy jump master ior disc annulu s tear. The AP dimens ion of the spinal canal measur es 5 mm. There is signal abnorm ality of the cervic al spinal cord at this level measur ing 11 mm longit udinal (image 9, series 3). There is bilate ral facet hypert rophy. There is signif icant neural forami nal stenos is bilate rally, greate r on the left. T12-L1 : There is a minima l circum ferent ial broad disc bulge. The AP dimens ion of the spinal canal measur es 7.9 mm. There is bilate ral facet hypert rophy. No signif icant neural forami nal stenos is bilate rally. 11 mm longit udinal . L1-L2: There is disc desicc ation and near comple te loss of disc height . Probab le vacuum phenom enon in the disc. There is irregu larity and edema of the adjace nt endpla venus. There is a circum ferent ial broad disc bulge with endpla te hypert rophy, most promin ent in the left forami nal region . There is bilate ral facet hypert rophy. The AP dimens ion of the spinal canal measur es 6 mm, with near comple te efface ment of CSF space. There is mild right and modera te left neural forami nal stenos is. L2-L3: There is near comple te loss of disc height . Probab le vacuum phenom enon in the disc. There is a small Schmor l's node in the L3 superi or endpla te. There are Modic type 2 change s in the adjace nt endpla venus. There is a circum ferent ial broad disc bulge with endpla te hypert rophy. There is a superi mposed left parace ntral disc hernia tion measur ing 8 mm AP x 11 mm transv erse x 10 mm longit udinal (image 9, series 3; image 14, series 5). The AP dimens ion of the spinal canal is narrow ed to 6 mm in the midlin e. There Page 2 of 4 [facility] t Name: MITZI MISTRY Access ion #: [id number] Sex: M : 1964 2 Exam Date: 05/31/20 9:41 AM Exam Name: MRI L SPINE WO Admitt ing Diagno sis(es ): is efface ment of the latera l recess es, greate r on the left. There is bilate ral facet and ligame ntum flavum hypert rophy. There is mild bilate ral neural forami nal stenos is. L3-L4: There is loss of disc height . There is a Schmor l's node in the L4 superi or endpla te. There are mild Modic type 2 change s in the adjace nt endpla venus. There is a circum ferent ial broad disc bulge with endpla te hypert rophy, most promin ent in the right forami nal region . There is bilate ral facet and ligame ntum flavum hypert rophy, greate r on the right. The AP dimens ion of the spinal canal measur es 6 mm in the midlin e. There is modera te to severe right and mild left neural forami nal stenos is. L4-L5: There is a circum ferent ial broad disc bulge with endpla te hypert rophy. There is a small L4 superi or endpla te Schmor l's node. There are mild Modic type 1 and 2 change s of the adjace nt endpla venus, greate r on the right. There is bilate ral facet and ligame ntum flavum hypert rophy. The AP dimens ion of the spinal canal measur es 5.5 mm. There is modera te right and mild left neural forami nal stenos is. L5-S1: There is a mild circum ferent ial broad disc bulge. No signif icant spinal canal stenos is. There is bilate ral facet and ligame ntum flavum hypert rophy. A synovi al cyst extend s abigail medial ly from the left facet just below the level of the disc, measur ing 10 x 5.5 mm axiall y (30, series 5), effaci ng the left latera l recess . There is mild right and modera te left neural forami nal stenos is. IMPRES ANNA: 1. No fractu re of the lumbar spine. 2. Advanc ed degene rative disc diseas e and facet arthro armando with multil evel Page 3 of 4 [facility] Name: GARY RajendraMITZI Cherelle Access ion #: [id number] Sex: M : 1964 2 Exam Date: 05/31/20 9:41 AM Exam Name: MRI L SPINE WO Admitt ing Diagno sis(es ): signif icant neural forami nal stenos is as detail ed above, includ ing T11-T1 2 bilate rally; L1-L2 on the left; L3-L4 on the right; L4-L5 on the right; L5-S1 on the left. 3. Varyin g degree s of spinal canal stenos is, most severe at T11-T1 2, L1-L2, L2-L3, L3-L4, and L4-L5. At the T11-T1 2 level, there is mass effect on the distal spinal cord with signal abnorm ality of the spinal cord measur ing 11 mm longit udinal . Some of this may be due to congen itally narrow spinal canal. Recomm end spinal surger y consul tation if not alread y obtain ed. 4. L2-L3 left parace ntral disc hernia tion measur es 11 mm transv erse x 8 mm AP. L5-S1 left synovi al cyst measur es 10 x 5.5 mm axiall y. These cause partia l efface ment of the left latera l recess es and may imping e on the left L3 and S1 nerve roots. Create d and electr onical ly signed by: David almazan MD Signed Date: 05/31/20 4:50 PM (CT) Dictat ed by: David almazan MD (CT) (CT) Page 4 of 4 [id number] [facility] (Imaging) [address] [place], [address], 01/25/2023 09:19:54 05/31/20 22 05/31/2022 imagi ng/di agnos tic resul t No observ ation record ed. [id number] [facility] Orders [address] [place], [address], 01/25/2023 09:19:54 Result Notes None recorded. Problems Name Problem SNOMED Code Status Onset Date Resolution Date Notes Provider Name and Address Organization Details Recorded Time CT of abdomen abnormal 0645868702347 9107 Active Not Available [facility] 3 09:15:57 Capsulitis of metatarsop halangeal joint of left foot 4467752443545 9105 Active 2019 Not Available [facility] 3 09:15:57 Backache 606162684 Active Not Available [facility] 3 09:15:57 Heartburn 20765462 Active 2019 Not Available [facility] 3 09:15:57 Gouty arthropath y 071259968 Active Not Available [facility] 3 09:15:57 Chronic pancreatit is 832446146 Active 2016 Not Available [facility] 3 09:15:57 Gastroesop hageal reflux disease 790373880 Active Not Available [facility] 3 09:15:57 Edema 113939305 Active Not Available [facility] 3 09:15:57 Hypertrigl yceridemia 236395850 Active Not Available [facility] 3 09:15:57 Pain in left foot 5541348061255 07 Active 2019 Not Available [facility] 3 09:15:57 Arthritis 6129099 Active 2019 Not Available [facility] 3 09:15:58 Hypertensi ve disorder 47766692 Active 2019 Not Available [facility] 3 09:15:58 Neuropathy 168811558 Active Not Available [facility] 3 09:15:58 Osteoarthr itis 863097596 Active Not Available [facility] 3 09:15:58 Dizziness 199200705 Active Not Available [facility] 3 09:15:58 Pain in eye 91277883 Active Not Available [facility] 3 09:15:58 Spasm 81384908 Active Not Available [facility] 3 09:15:58 Cough 07579002 Active Not Available [facility] 3 09:15:58 Hyperlipid emia 19198007 Active Not Available [facility] 3 09:15:58 Essential hypertensi on 04894523 Active Not Available [facility] 3 09:15:58 Disorder of skin and/or subcutaneo us tissue 15151200 Active Not Available [facility] 3 09:15:58 Degenerati ve joint disease of ankle AND/OR foot 10842847 Active 2019 Not Available [facility] 3 09:15:58 Fatigue 03175362 Active Not Available [facility] 3 09:15:58 Lesion of scalp 783029488021 Active Not Available [facility] 3 09:15:59 Gout 36060824 Active TOPHI Not Available [facility] 3 09:15:59 Seizure 32946209 Active Not Available [facility] 3 09:15:59 Skin lesion 06276443 Active Not Available [facility] 3 09:15:59 Vitamin D deficiency 56337060 Active 3 Ana Lilia Roman MD [address] [facility], [facility] [[email or web address] [address], [place], [address] , [facility] 3 12:36:57 Iron deficiency anemia 77933604 Active 2022 Ana Lilia Roman MD [address], [place], [address] , [employer] [facility] [employer] [facility] 3 12:37:11 Abdominal pain 94944904 Active 2022 Ana Lilia Roman MD [address], [address], [place], [address] , [employer] [facility] [employer] [facility] 3 12:38:24 Chronic sinusitis 06697805 Active 2022 Ana Lilia Roman MD [address], [address], [place], [address] , [employer] [facility] [employer] [facility] 3 12:39:25 Degenerati on of lumbar interverte bral disc 97808831 Active 2022 Ana Lilia Roman MD [address], [address], [place], [address] , [employer] [facility] 3 12:40:33 Pain of left eye 5231485166873 04 Active 2023 Ana Lilia Roman MD [address], [address], [place], [address] , [employer] [facility] 4 10:51:26 Cellulitis of periorbita l region of left eye 9978505251001 09 Active 2023 Ana Lilia Roman MD [address], [address], [place], [address] , [employer] [facility] 4 10:51:47 Multiple joint pain 57349005 Active 2023 Ana Lilia Roman MD [address], [address], [place], [address] , [employer] [facility] 4 10:53:38 Insomnia 668544676 Active 2023 Ana Lilia Roman MD [address], [place], [address] , [employer] [facility] 4 07:50:39 Notes:back and neck problems nerve disease Problem Notes None recorded. Procedures Surgical History Date Name Laterality Status Provider Name and Address Organization Details Recorded Time Colonoscopy completed Not Available [facility] 01/26/20 09:13:07 Imaging Results Imaging Date Name Status LastModified by Organiz ation Details LastModified Time 05/31/2022 MRI, lumbar spine, w/o contrast completed [id number] [facility] (Imaging) [address] [place], [address], 01/25/2023 09:19:54 05/31/2022 imaging/diagn ostic result completed [id number] [facility] Orders [address] [place], [address], 01/25/2023 09:19:54 Procedure Notes None recorded. Medical Equipment None Reported. Medications Name Sig Start Date Stop Date Status Note LastModified by Organization Details LastModified Time cyclobenzap rine 10 mg tablet TAKE 1 TABLET BY MOUTH THREE TIMES DAILY active Not Available Not Available No t Available amoxicillin 500 mg capsule Take 1 capsule every 12 hours by oral route for 10 days. active Not Available Not Available No t Available gabapentin 600 mg tablet TK 1 T PO TID 03/03 completed Not Available Not Available Not Available atorvastati n 20 mg tablet TAKE 1 TABLET BY MOUTH DAILY active Not Available Not Available No t Available trazodone 50 mg tablet TAKE 1 TABLET BY MOUTH EVERY DAY AT BEDTIME NEEDED FOR INSOMNIA active Not Available Not Available No t Available azithromyci n 250 mg tablet TK 2 TS PO ON DAY 1, THEN TK 1 T PO D FOR 4 DAYS 02/06 completed Not Available Not Available Not Available prednisone 20 mg tablet TAKE 2 TABLETS BY MOUTH EVERY DAY WITH FOOD FOR 5 DAYS active Not Available Not Available No t Available phenytoin sodium extended 100 mg capsule TAKE 1 CAPSULE BY MOUTH THREE TIMES DAILY active Not Available Not Available No t Available ciprofloxac in 250 mg tablet Take 1 tablet every 12 hours by oral route for 7 days. active Not Available Not Available No t Available amlodipine 5 mg tablet TAKE 1 TABLET BY MOUTH EVERY DAY active Not Available Not Available No t Available allopurinol 100 mg tablet TAKE 2 TABLETS BY MOUTH THREE TIMES DAILY 08/15 completed Not Available Not Available Not Available hydrocodone 10 mg-acetamin ophen 325 mg tablet TAKE 1 TABLET BY MOUTH FOUR TIMES DAILY active Not Available Not Available No t Available omeprazole 40 mg capsule,del ayed release TK 1 C PO QD 03/03 completed Not Available Not Available Not Available triamcinolo ne acetonide 0.1 % topical cream APPLY THIN LAYER TOPICALLY TO THE AFFECTED AREA TWICE DAILY NEEDED active Not Available Not Available No t Available amoxicillin 875 mg tablet TAKE 1 TABLET BY MOUTH EVERY 12 HOURS UNTIL GONE 02/06 completed Not Available Not Available Not Available dicyclomine 20 mg tablet TK 1 T PO TID 03/03 completed Not Available Not Available Not Available cephalexin 500 mg capsule Take 1 capsule twice a day by oral route for 7 days. 2023 active Not Available Not Available Not Avai lable pantoprazol e 40 mg tablet,vaibhav yed release TAKE 1 TABLET BY MOUTH EVERY DAY active Not Available Not Available No t Available polymyxin B sulfate 10,000 unit-trimet hoprim 1 mg/mL eye drops INSTILL 1 DROP INTO AFFECTED EYE(S) BY OPHTHALMI C ROUTE EVERY 6 HOURS x 7 days active Not Available Not Available No t Available indomethaci n 50 mg capsule TAKE 1 CAPSULE BY MOUTH THREE TIMES DAILY active Not Available Not Available No t Available gabapentin 300 mg capsule Take 2 capsules 3 times a day by oral route for 30 days. active Not Available Not Available No t Available amoxicillin 250 mg capsule TK ONE C PO Q 8 H TAT 09/25 completed Not Available Not Available Not Available allopurinol 300 mg tablet TAKE 2 AND 1/2 TABLETS BY MOUTH EVERY DAY active Not Available Not Available No t Available furosemide 20 mg tablet TAKE 1 TABLET BY MOUTH EVERY DAY NEEDED active Not Available Not Available No t Available mirtazapine 15 mg tablet TK 1 T PO QD BEFORE BEDTIME 08/15 completed Not Available Not Available Not Available levofloxaci n 500 mg tablet TAKE 1 TABLET BY MOUTH EVERY 24 HOURS FOR 7 DAYS active Not Available Not Available No t Available methylpredn isolone 4 mg tablets in a dose pack FOLLOW PACKAGE DIRECTION S 12/06 completed Not Available Not Available Not Available albuterol sulfate HFA 90 mcg/actuati on aerosol inhaler INHALE 2 PUFFS BY MOUTH EVERY 4 HOURS NEEDED active Not Available Not Available No t Available ondansetron 4 mg disintegrat ing tablet DIS ONE T PO Q 6 TO 8 H PRN N 03/03 completed Not Available Not Available Not Available fluticasone propionate 50 mcg/actuati on nasal spray,suspe nsion SHAKE LIQUID AND USE 2 SPRAYS IN EACH NOSTRIL DAILY active Not Available Not Available No t Available doxycycline hyclate 100 mg tablet Take 1 tablet twice a day by oral route before meals for 7 days. active Not Available Not Available No t Available loratadine 10 mg tablet TK 1 T PO D PRN active Not Available Not Available No t Available naproxen 500 mg tablet TAKE 1 TABLET BY MOUTH TWICE DAILY NEEDED active Not Available Not Available No t Available metoclopram dali 10 mg tablet TAKE 1 TABLET BY MOUTH FOUR TIMES DAILY active Not Available Not Available No t Available fenofibrate 160 mg tablet TAKE 1 TABLET BY MOUTH EVERY DAY active Not Available Not Available No t Available pregabalin 150 mg capsule Take 1 capsule twice a day by oral route. active Not Available Not Available No t Available gabapentin 300 06/07 completed Not Available Not Available Not Available Amitiza 24 mcg capsule TAKE 1 CAPSULE BY MOUTH TWICE DAILY active Not Available Not Available No t Available Vitals Date Recorded Body mass index (BMI) Body height Oxygen saturation Oxygen saturation in Arterial blood by Pulse oximetry Heart rate Body temperature Body weight Systolic blood pressure Diastolic blood pressure Provider Name and Address Organization Details Last Updated DateTime 2 35 kg/m2 162.56 cm 97 % 97 % 63 /min 97.9 [degF] 99149.8 4 g 130 mm[Hg] 80 mm[Hg] Not Available [facility] 3 09:13:33 Date Recorded Body mass index (BMI) Body height Oxygen saturation Oxygen saturation in Arterial blood by Pulse oximetry Heart rate Body temperature Body weight Systolic blood pressure Diastolic blood pressure Provider Name and Address Organization Details Last Updated DateTime 2 35.5 kg/m2 162.56 cm 98 % 98 % 66 /min 97.6 [degF] 23171.6 2 g 116 mm[Hg] 72 mm[Hg] Not Available [facility] 3 09:13:33 Date Recorded Body mass index (BMI) Body height Oxygen saturation Oxygen saturation in Arterial blood by Pulse oximetry Heart rate Body temperature Body weight Systolic blood pressure Diastolic blood pressure Provider Name and Address Organization Details Last Updated DateTime 2 35.2 kg/m2 162.56 cm 98 % 98 % 69 /min 97.5 [degF] 34492.4 4 g 118 mm[Hg] 76 mm[Hg] Not Available [facility] 3 09:13:33 Date Recorded Body height Body mass index (BMI) Body weight Body temperature Heart rate Oxygen saturation Oxygen saturation in Arterial blood by Pulse oximetry Systolic blood pressure Diastolic blood pressure Provider Name and Address Organization Details Last Updated DateTime 3 162.56 cm 36.9 kg/m2 83021.3 6 g 97.5 [degF] 67 /min 98 % 98 % 120 mm[Hg] 80 mm[Hg] Alverto Pelayo RN [facility] [employer] 3 12:28:20 Date Recorded Body height Body mass index (BMI) Body weight Body temperature Heart rate Oxygen saturation Oxygen saturation in Arterial blood by Pulse oximetry Systolic blood pressure Diastolic blood pressure Provider Name and Address Organization Details Last Updated DateTime 4 162.56 cm 37.2 kg/m2 89698.5 4 g 98.3 [degF] 87 /min 98 % 98 % 142 mm[Hg] 90 mm[Hg] JANE Frazier [facility] [employer] 4 10:21:05 Social History Question Answer Notes LastModified by Organizat ion Details LastModified Time Tobacco Smoking Status Never Smoker Not Available [facility] 01/25/2023 09:12:47 Do You Have An Advance Directive? No [id number] Information not available 01/25/2023 What Is Your Level Of Alcohol Consumption? Occasional [id number] Information not available 01/25/2023 What Is Your Level Of Caffeine Consumption? Occasional [id number].[id number] Information not available 01/25/2023 How Much Tobacco Do You Chew? None MIGRATION.[id number] Information not available 01/25/2023 In The 14 Days Before Symptom Onset, Have You Had Close Contact With A Laboratory-confir med COVID-19 While That Case Was Ill? No MIGRATION.[id number] Information not available 01/25/2023 In The 14 Days Before Symptom Onset, Have You Had Close Contact With A Person Who Is Under Investigation For COVID-19 While That Person Was Ill? No [id number].[id number] Information not available 01/25/2023 What Type Of Diet Are You Following? REGULAR MIGRATION.[id number] Information not available 01/25/2023 Which Illicit Or Recreational Drugs Have You Used? No MIGRATION.[id number] Information not available 01/25/2023 Do You Or Have You Ever Used E-cigarettes Or Vape? Never Used Electronic Cigarettes MIGRATION.[id number] Information not available 01/25/2023 What Is Your Occupation? [employer] AR[employer] MIGRATION.[id number] 9778 Information not available 01/25/2023 What Was The Date Of Your Most Recent Tobacco Screening? 04/12/2021 MIGRATION.[id number] Information not available 01/25/2023 Do You Or Have You Ever Used Smokeless Tobacco? Never Used Smokeless Tobacco MIGRATION.[id number]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
[2025-03-07 12:02] LABS: Basophils Absolute Auto 0.1 K/mm3 (0.0-0.1); Basophils Percent Auto 0.6 % (0.2-1.2); Eosinophils Absolute Auto 0.2 K/mm3 (0-0.3); Eosinophils Percent Auto 2.2 % (0-4.4); Hematocrit 46.4 % (42.0-52.0); Hemoglobin 14.7 g/dL (14.0-18.0); Immature Granulocyte Absolute 0.03 K/mm3 (0.00-0.031); Immature Granulocyte Percent A 0.4 % (0-0.5); Lymphocytes Absolute Auto 2.42 K/mm3 (0.9-3.2); Lymphocytes Percent Auto 28.5 % (18.3-44.2); Mean Corpuscular HGB Conc 31.7 g/dl (32-36); Mean Corpuscular Hemoglobin 28.9 pg (26-34); Mean Corpuscular Volume 91.2 fl (80-100); Mean Platelet Volume 10.2 fl (7.4-10.4); Monocytes Absolute Auto 0.7 K/mm3 (0.1-0.6); Monocytes Percent Auto 8.1 % (2.6-8.5); Neutrophils Absolute Auto 5.1 K/mm3 (1.3-6.7); Neutrophils Percent Auto 60.2 % (45.5-73.1); Platelet Count Result 223 k/mm3 (150-375); Red Blood Count 5.09 M/mm3 (4.6-6.20); Red Cell Distribution Width 13.5 % (11.5-14.5); White Blood Count 8.5 K/mm3 (4.5-10.0)
[2025-03-07 12:06] LABS: Add Urine Microscopic? NO; Appearance Urine Clear (Clear); Bilirubin Urine Negative (Negative); Blood Urine Negative (Negative); Color Urine Yellow (Yellow); Glucose Urine UA Negative (Negative); Ketones Urine Negative (Negative); Leukocyte Esterase Ur Negative LEU/UL (Negative); Nitrate Urine Negative (Negative); Protein Urine Negative (Negative); Specific Grav Ur 1.006 (1.001-1.035); Urobilinogen Urine 0.2 mg/dL (<2.0)
[2025-03-07 12:17] LABS: Hemoglobin A1C 5.3 % (<5.7)
[2025-03-07 12:29] LABS: Creatinine Urine 36.1 mg/dL
[2025-03-07 12:36] LABS: MALB Creatinine Ratio < 16.6 mg/g (0-30); Microalbumin Urine Random < 6.0 mg/L (0-16.7)
[2025-03-07 13:09] LABS: Hepatitis C Virus Antibody Negative (Negative)
[2025-03-07 20:47] LABS: Alanine Aminotransferase 32 U/L (6-50); Albumin Level 4.5 g/dL (3.5-5.1); Alkaline Phosphatase 82 U/L (38-126); Anion Gap 12 mmol/L (4-12); Aspartate Amino Transferase 28 U/L (17-59); Bilirubin,Total 0.3 mg/dL (0.2-1.3); Blood Urea Nitrogen 18 mg/dL (9-20); Calcium 9.4 mg/dL (8.4-10.2); Carbon Dioxide 22 mmol/L (22-30); Chloride 103 mmol/L (98-107); Cholesterol 197 mg/dL (0-200); Estimated Glomerular Filt Rate 59; Glucose 89 mg/dL (65-110); HDL Direct 70 mg/dL; Phosphorus 3.4 mg/dL (2.5-4.5); Potassium 5.1 mmol/L (3.4-5.0); Sodium 137 mmol/L (137-145); Triglycerides 63 mg/dL (<150); Uric Acid 7.6 mg/dL (3.5-8.5)
[2025-03-07 20:58] LABS: LDL Cholesterol Direct 120 mg/dL
[2025-03-07 21:17] LABS: Prostate Specific Antigen 2.7 ng/mL (< OR = 4.0)
[2025-03-07 21:52] LABS: Folic Acid 14.5 ng/mL (2.76->20)
== END 2025-03-07 10:28 | disposition home or self-care (01) ==
PROVIDERS: PCP Emergency Medicine; Visit Provider Emergency Medicine
DX: Z00.01 Encounter for general adult medical examination with abnormal findings (principal); G40.909 Epilepsy, unspecified, not intractable, without status epilepticus; G47.09 Other insomnia; G89.4 Chronic pain syndrome; M10.9 Gout, unspecified; R60.9 Edema, unspecified
CPT/HCPCS: 36415; 80061; 80069; 80076; 81003; 82043; 82607; 82746; 83036; 84153; 84443; 84550; 85025; 86803

== ENCOUNTER 2025-06-11 15:25 | Outpatient (CLI) | payer OTHER, SELFPAY ==
--- NOTE | ~2025-06-11 | XR_ITS ---
EXAM: [id number] DATE: 06/11/2025 15:44 HISTORY: pain in rt knee X YEARS . COMPARISON: None available. FINDINGS: Normal mineralization. No fracture or dislocation. Mixed density medullary lesion in the p roximal tibia, likely bone infarct or enchondroma. Mild medial joint space narrowing. Moderate tricom partmental osteophytosis. Trace joint fluid.. No erosion or periosteal change. Thickening of the mid and inferior patellar tendon with subcutaneous stranding. Quadriceps and tibial tuberosity enthesopat hy. Focal likely dystrophic calcification in the distal quadriceps. Minimal gastric calcifications. IMPRESSION: Moderate tricompartmental right knee osteoarthritis. Small right knee joint effusion. Inf lammatory changes in the patellar tendon, correlate for pain/tenderness. 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 Reviewed, dictated and finalized at location K. IMPRESSION: Moderate tricompartmental right knee osteoarthritis. Small right kn ee joint effusion. Inflammatory changes in the patellar tendon, correlate for p ain/tenderness. 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
--- OUTSIDE RECORDS SUMMARY | 2025-06-11 15:30 | XMS_ITS | Clinical Summary ---
Author Organization [facility] Address [address] [place] [address] Care Team Providers Care Hvac Mechanical Engineer Name Role Phone Unavailable Primary Care Provider [...] Td Vaccines ( 1 - Tdap) 1983 Pneumococcal Vaccine: 50+ Ye ars (1 of 1 - PCV) 2014 Zoster Vaccines (1 of 2) 2014 COVID-19 [...]
--- OUTSIDE RECORDS SUMMARY | 2025-06-11 15:30 | XMS_ITS | Continuity of Care Document ---
Author Organization [facility] Address [address] [place] [address] [place] [address] Phone Care Team Providers Care Gis Programmer Name Role Phone Cachorro Rao MD Unavailable Unavailable Allergies, Adverse Reactions, Alerts Substance Reaction Status Criticality No Known Allergies Active No Inform ation Medications Medication Instructions Dosage Effective Dates (start - stop) Status Comments hydrocodone 10 mg-acetaminophen 325 mg tablet take 1 by Oral route every day as needed 1 - Active PRN for pain, avoid driving or operate machines Neurontin 300 mg capsule take 1 capsule by oral route 3 times every day 300 MG - Active avoid driving or operate machines allopurinol 300 mg tablet take 1 tablet by oral route every day 300 MG - Active indomethacin 50 mg capsule take 1 capsule by oral route every day with food 50 MG - Active phenytoin sodium extended 100 mg capsule take 1 capsule by oral route 3 times every day 100 MG - Active cyclobenzaprine 10 mg tablet take 1 tablet by oral route 3 times every day 10 MG - Active avoid driving or operate machines Lasix 20 mg tablet take 1 tablet by oral route every day 20 MG - Active trazodone 50 mg tablet take 1 tablet by oral route every bedtime after meals 50 MG - Active qhs for insomnia Procedures Procedure Date OFFICE/OUTPATIENT VISIT, EST OFFICE/OUTPATIENT VISIT, EST OFFICE/OUTPATIENT VISIT, EST OFFICE/OUTPATIENT VISIT, EST Advance Directives Directive Yes / No Effective Date File Name No Information Encounters Encounter Description Practice Location Reason(s) For Visit Diagnoses Date Provider Providers Copied on Encounter OFFICE/OUTPA TIENT VISIT, [facility], [address], [place], [place], [id number], [place] tel:[phone] [facility] knee pain1 (chief complaint) Pain in right knee 5 Jalen Ivory. [address], [place], [place], [address] , [place]. tel:[phone] OFFICE/OUTPA TIENT VISIT, [facility], [address], [place], [place], [id number], [place] tel:[phone] [facility] pain (chief complaint) knee pain1 (chief complaint) gout1 (chief complaint) Chronic pain syndromePain in right kneeGout 5 Jalen Ivory. [address], [place], [place], [address] , [place]. [phone] OFFICE/OUTPA TIENT VISIT, [facility], [address], [place], [place], [address], [place] tel:[phone] [facility] pain1 (chief complaint) gout1 (chief complaint) KCL (chief complaint) Chronic pain syndromeGoutHlety lemiaEncounter for screening for malignant neoplasm of colon 5 Rao Cachorro. [address], [place], [place], [address] , [place]. tel:[phone] OFFICE/OUTPA TIENT VISIT, [facility], [address] [place] [address], [place] tel:[phone] [facility] seizure1 (chief complaint) gout1 (chief complaint) edema1 (chief complaint) insomnia1 (chief complaint) back pain1 (chief complaint) Epilepsy NOSGoutEdemaOther insomniaChronic pain syndromeIdiopathic peripheral autonomic neuropathy 5 Jalen Ivory. [address], [place], [place], [address] , [place]. tel:[phone] Family History Family Member Type Diagnosis Age At Onset Mother Problem of CVA 65, HTN Father Problem of 74 old age Sister Problem of PVD complicated surg agustina 63 Payers Payer name Insurance type Covered democrat ID Sahil ochoa(s) [facility] CI [id number] Social History Type Description Quantity Date Captured Comments Alcohol Use Details Caffeine Use Details Unknown Tobacco Use Status Current non-smoker Smoking Status Never smoker Sex Male Vital Signs Date / Time: Height Weight BMI Pulse Rate Blood Pressure Temperature Respiratory Rate Body Surface Area Head Circumference BMI percentile Pulse Ox Inhaled Ox 8:57 PM 69.00 in 211.00 lbs 31.1 6 kg/m eter (2) Chief Complaint And Reason For Visit From encounter dated '05/27/2025 20:53'. knee pain1 (chief complaint). Description: Pt c/o chronic right knee pain for several years Pt notices mild swelling sometimes Pt denies any injury Plan Of Treatment Date Type Action Status Referral Ordered: Orthopedic Surgery (related to Pain in right knee) ordered Referral Ordered: Orthopedic Surgery (related to Pain in right knee) ordered Referral Ordered: KNEE XRAY TWO-VIEW Right ordered Referral Ordered: Referrals: Orthopedic Surgery. Evaluate and treat ordered Referral Ordered: LUMBAR XRAY AP AND LAT ONLY ordered Appointment Thom Huff BOOKED Appointment Thom Huff BOOKED History Of Present Illness Encounter Date Complaint History Of Prese nt Illness knee pain1 Pt c/o chronic r ight knee pain for several years Pt notices mild swelling sometimes Pt denies any injury pain Pt c/o chronic l ow burt pain with bilateral sciatica and leg neuropathy. pt denies any loss of bowel or blader control or saddle area paresthesia. Pt takes norco and neurontin and doing ok knee pain1 Pt c/o chronic r ight knee pain for several years Pt notices mild swelling sometimes Pt denies any injury gout1 Pt has history o f gout. Pt is on allopurinol and he denies any recurrent gout attacks gout1 Pt history of go ut Pt takes allopurinol daily Pt denies any recurrent attacks. His uric acid is ok pain1 Pt c/o chronic l ow burt pain with bilateral sciatica and leg neuropathy. pt denies any loss of bowel or blader control or saddle area paresthesia KCL Pt has borderlin e high KCL. Pt denies any chest pain. back pain1 Pt has chronic l ow [...] on phenytoin. Instructions Date Instruction Additional Infor mation No Information Assessments Type Assessment Date assessment Pain in right knee Mental Status Date Cognitive Assessment Orientation - [place] ed to time, place, person, situation.
--- OUTSIDE RECORDS SUMMARY | 2025-06-11 15:30 | XMS_ITS | Data Portability ---
Author Organization [facility] [employer], Main Office Address [address] [place] [address] Assessment No assessment recorded. Plan of Treatment Reminders Order Date Submit Date Provider Last Modified By Organization Details Last Modified Time Details Appointments None recorded. Lab uric acid, serum or plasma 2023 024 [email or web address] [id number] 4 [facility] (Lab), [address] [place], [address], 11:39:20 lipid panel, serum [address] (Lab), [address] [place], [address], 11:39:36 hepatic function panel, serum [address] (Lab), [address] [place], [address], 11:39:53 PSA, serum or plasma [address] [place] [address] (Lab), [address] [place], [address], 11:40:31 vitamin D, 25-hydroxy, total, serum [address] (Lab), [address] [place], [address], 11:40:11 ESR (erythrocyt e sedimentati on rate), blood 2023 024 [email or web address] 4 [facility] (Lab), [address] [place], [address], 4 11:43:18 rf (rheumatoid factor), serum 2023 024 [email or web address] [id number] 4 [facility] (Lab), [address] [place], [address], 4 11:43:34 BRADY (antinuclea r antibodies) screen, serum 2023 024 [place] [address] 4 [facility] (Lab), [address] [place], [address], 4 11:43:52 BMP, serum or plasma 2023 024 [place] [address] 4 [facility] (Lab), [address] [place], [address], 4 11:39:02 ferritin, serum or plasma 2023 024 [place] [address] 4 [facility] (Lab), [address] [place], [address], 4 11:40:50 iron + total iron-bindin g capacity (TIBC), serum 2023 024 [email or web address] [id number] 4 [facility] (Lab), [address] [place], [address], 4 11:42:39 CBC w/ auto diff 2023 024 [email or web address] [address] 4 [facility] (Lab), [address] [place], [address], 4 11:42:56 uric acid, serum or plasma [address] (Lab), [address] [place], [address], 3 07:53:51 lipase, serum or plasma [address] (Lab), [address] [place], [address], 3 07:53:52 amylase, serum or plasma [address] (Lab), [address] [place], [address], 3 07:53:52 lipid panel, serum [address] (Lab), [address] [place], [address], 3 07:53:52 hepatic function panel, serum [address] (Lab), [address] [place], [address], 3 07:53:52 PSA, serum or plasma [address] (Lab), [address] [place], [address], 3 07:53:52 vitamin D, 25-hydroxy, total, serum [address] (Lab), [address] [place], [address], 3 07:53:52 BMP, serum or plasma [address] (Lab), [address] [place], [address], 3 07:53:51 ferritin, serum or plasma [address] (Lab), [address] [place], [address], 3 07:53:51 iron + total iron-bindin g capacity (TIBC), serum [address] (Lab), [address] [place], [address], 3 07:53:51 CBC w/ auto diff [address] (Lab), [address] [place], [address], 3 07:53:51 Referral ophthalmolo gist referral - Please call patient to schedule an appointment 2023 024 [email or web address] [employer], [address] , [place], [address], 4 08:56:56 otolaryngol ogist referral 2022 023 [email or web address] 3 Abdulaziz Bowers MD, [address], [place], [address], 3 13:52:37 Procedures None recorded. Surgeries None recorded. Imaging None recorded. Medication Orders hydrocodone 10 mg-acetamin ophen 325 mg tablet 2023 024 [facility] #[id number], [address] [place], [place], [id number], 4 10:56:06 cephalexin 500 mg capsule 2023 024 [email or web address] [id number], [address] [place], [place], [id number], 4 07:47:03 triamcinolo ne acetonide 0.1 % topical cream 2023 024 [facility] #52149, [address] [place], [place], [id number], 4 10:56:03 prednisone 20 mg tablet 2023 024 [facility] #[id number], [address] [place], [place], [id number], 4 10:56:04 hydrocodone 10 mg-acetamin ophen 325 mg tablet 2022 023 [facility] #24036, [address] [place], [place], [id number], 3 12:45:05 amoxicillin 875 mg tablet 2022 023 [email or web address] [facility] [employer] [facility] [place] #[address], [address] [place], [place], [id number], 4 10:47:24 Patient TargetsNo targets recorded. Patient InstructionsNo instructions recorded. Reason for Referral [employer] [employer] Referral fo r Chronic sinusitis Referring Physician: [facility], Encounter Date: 07/05/2023 Steam Gigger Referral for Pain of left eye Please call patient to schedule an appointment Referring Physician: [facility], Encounter Date: 02/07/2024 Results Created Date Observation Date Name Description Value Unit Range Abnormal Flag Note LastModifiedBy Organization Detail LastModifiedTime 10/24/20 22 10/24/2022 THAO TIN ferritin 137 NG/mL 17.9-4 64 Not Available [facility] (Lab) [address] [place], [address], 10/24/2022 22:50:00 10/24/20 22 10/24/2022 PSA SCREE N PSA medicare screen 2.28 NG/mL 0.00-4 .00 Not Available [facility] (Lab) [address] [place], [address], 10/24/2022 22:22:26 10/24/20 22 10/24/2022 IRON/ TIBC PANEL total iron binding capacity 332 mcg/d L 265-47 5 Not Available [facility] (Lab) [address] [place], [address], 10/24/2022 22:09:27 10/24/20 22 10/24/2022 IRON/ TIBC PANEL % transferrin saturation 23 % 20-55 Not Available [facility] (Lab) [address] [place], [address], 10/24/2022 22:09:27 10/24/20 22 10/24/2022 IRON/ TIBC PANEL unsaturated iron bind capacity 257 mcg/d L 126-38 2 Not Available [facility] (Lab) [address] [place], [address], 10/24/2022 22:09:27 10/24/20 22 10/24/2022 IRON/ TIBC PANEL iron 75 mcg/d L 42-175 Not Available [facility] (Lab) [address] [place], [address], 10/24/2022 22:09:27 10/24/20 22 10/24/2022 VITAM IN D 25-HY DROXY [id number] 30.8 NG/mL 30-100 Vitam in D Statu s: Defic ient: <20 ng/mL Insuf ficie nt: 20-29 ng/mL Suffi cient : 30-10 0 ng/mL Not Available [facility] (Lab) [address] [place], [address], 10/24/2022 22:08:47 10/24/20 22 10/24/2022 CBC/C OMPLE TE BLD COUNT W/DIF F white blood cells 6.9 x10'3 /uL 4.2-10 .8 Not Available [facility] (Lab) [address] [place], [address], 10/24/2022 21:59:07 10/24/20 22 10/24/2022 CBC/C OMPLE TE BLD COUNT W/DIF F red blood cells 4.69 x10'6 /uL 4.10-5 .80 Not Available [facility] (Lab) [address] [place], [address], 10/24/2022 21:59:07 10/24/20 22 10/24/2022 CBC/C OMPLE TE BLD COUNT W/DIF F hemoglobin 14.4 g/dL 13.2-1 7.0 Not Available [facility] (Lab) [address] [place], [address], 10/24/2022 21:59:07 10/24/20 22 10/24/2022 CBC/C OMPLE TE BLD COUNT W/DIF F hematocrit 43.6 % 39.3-5 0.0 Not Available [facility] (Lab) [address] [place], [address], 10/24/2022 21:59:07 10/24/20 22 10/24/2022 CBC/C OMPLE TE BLD COUNT W/DIF F mean red cell volume 93.0 fL 80.0-9 7.0 Not Available [facility] (Lab) [address] [place], [address], 10/24/2022 21:59:07 10/24/20 22 10/24/2022 CBC/C OMPLE TE BLD COUNT W/DIF F mean red cell hemoglobin 30.7 pg 27.0-3 3.0 Not Available [facility] (Lab) [address] [place], [address], 10/24/2022 21:59:07 10/24/20 22 10/24/2022 CBC/C OMPLE TE BLD COUNT W/DIF F mean RBC HGB concentratio n 33.0 g/dL 31.0-3 6.0 Not Available [facility] (Lab) [address] [place], [address], 10/24/2022 21:59:07 10/24/20 22 10/24/2022 CBC/C OMPLE TE BLD COUNT W/DIF F red cell distribution width 14.0 % 11.8-1 5.5 Not Available [facility] (Lab) [address] [place], [address], 10/24/2022 21:59:07 10/24/20 22 10/24/2022 CBC/C OMPLE TE BLD COUNT W/DIF F platelets 206 x10'3 /uL 150-40 0 Not Available [facility] (Lab) [address] [place], [address], 10/24/2022 21:59:07 10/24/20 22 10/24/2022 CBC/C OMPLE TE BLD COUNT W/DIF F mean platelet volume 11.5 fL 9.0-12 .4 Not Available [facility] (Lab) [address] [place], [address], 10/24/2022 21:59:07 10/24/20 22 10/24/2022 CBC/C OMPLE TE BLD COUNT W/DIF F neutrophils 64.0 % 39.0-7 2.0 Not Available [facility] (Lab) [address] [place], [address], 10/24/2022 21:59:07 10/24/20 22 10/24/2022 CBC/C OMPLE TE BLD COUNT W/DIF F lymphocytes 24.9 % 16.0-4 7.0 Not Available [facility] (Lab) [address] [place], [address], 10/24/2022 21:59:07 10/24/20 22 10/24/2022 CBC/C OMPLE TE BLD COUNT W/DIF F monocytes 7.5 % 5.0-12 .0 Not Available [facility] (Lab) [address] [place], [address], 10/24/2022 21:59:07 10/24/20 22 10/24/2022 CBC/C OMPLE TE BLD COUNT W/DIF F eosinophils 2.7 % 1.0-7. 0 Not Available [facility] (Lab) [address] [place], [address], 10/24/2022 21:59:07 10/24/20 22 10/24/2022 CBC/C OMPLE TE BLD COUNT W/DIF F basophils 0.6 % 0.0-2. 0 Not Available [facility] (Lab) [address] [place], [address], 10/24/2022 21:59:07 10/24/20 22 10/24/2022 CBC/C OMPLE TE BLD COUNT W/DIF F immature granulocytes 0.3 % 0.00-0 .50 Not Available [facility] (Lab) [address] [place], [address], 10/24/2022 21:59:07 10/24/20 22 10/24/2022 CBC/C OMPLE TE BLD COUNT W/DIF F neutrophils, absolute count 4.44 x10'3 /uL 1.5-8. 0 Not Available [facility] (Lab) [address] [place], [address], 10/24/2022 21:59:07 10/24/20 22 10/24/2022 CBC/C OMPLE TE BLD COUNT W/DIF F lymphocytes, absolute count 1.73 x10'3 /uL 1.07-3 .43 Not Available [facility] (Lab) [address] [place], [address], 10/24/2022 21:59:07 10/24/20 22 10/24/2022 CBC/C OMPLE TE BLD COUNT W/DIF F monocytes, absolute count 0.52 x10'3 /uL 0.29-0 .99 Not Available [facility] (Lab) [address] [place], [address], 10/24/2022 21:59:07 10/24/20 22 10/24/2022 CBC/C OMPLE TE BLD COUNT W/DIF F eosinophils, absolute count 0.19 x10'3 /uL 0.02-0 .53 Not Available [facility] (Lab) [address] [place], [address], 10/24/2022 21:59:07 10/24/20 22 10/24/2022 CBC/C OMPLE TE BLD COUNT W/DIF F basophils, absolute count 0.04 x10'3 /uL 0.01-0 .08 Not Available [facility] (Lab) [address] [place], [address], 10/24/2022 21:59:07 10/24/20 22 10/24/2022 CBC/C OMPLE TE BLD COUNT W/DIF F immature granulocytes ,absolute 0.02 x10'3 /uL 0.00-0 .05 Not Available [facility] (Lab) [address] [place], [address], 10/24/2022 21:59:07 10/24/20 22 10/24/2022 CBC/C OMPLE TE BLD COUNT W/DIF F nucleated red blood cells 0.0 % -0 Not Available [facility] (Lab) [address] [place], [address], 10/24/2022 21:59:07 10/24/20 22 10/24/2022 CBC/C OMPLE TE BLD COUNT W/DIF F NRBC# 0.00 x10'3 /uL Not Available [facility] (Lab) [address] [place], [address], 10/24/2022 21:59:07 10/24/20 22 10/24/2022 HEPAT IC/LI LOW PANEL alkaline phosphatase 82 U/L 38-126 Not Available [facility] (Lab) [address] [place], [address], 10/24/2022 21:48:00 10/24/20 22 10/24/2022 HEPAT IC/LI LOW PANEL alanine aminotransfe rase 21 U/L 0-50 Not Available [facility] (Lab) [address] [place], [address], 10/24/2022 21:48:00 10/24/20 22 10/24/2022 HEPAT IC/LI LOW PANEL aspartate aminotransfe rase 21 U/L 15-46 Not Available [facility] (Lab) [address] [place], [address], 10/24/2022 21:48:00 10/24/20 22 10/24/2022 HEPAT IC/LI LOW PANEL bilirubin, total 0.40 mg/dL 0.20-1 .30 Not Available [facility] (Lab) [address] [place], [address], 10/24/2022 21:48:00 10/24/20 22 10/24/2022 HEPAT IC/LI LOW PANEL bilirubin, conjugated (direct) 0.00 mg/dL 0.00-0 .30 Not Available [facility] (Lab) [address] [place], [address], 10/24/2022 21:48:00 10/24/20 22 10/24/2022 HEPAT IC/LI LOW PANEL biliurubin,u ncong. (indirect) 0.20 mg/dL 0.00-1 .1 Not Available [facility] (Lab) [address] [place], [address], 10/24/2022 21:48:00 10/24/20 22 10/24/2022 HEPAT IC/LI LOW PANEL total protein 6.3 g/dL 6.3-8. 2 Not Available [facility] (Lab) [address] [place], [address], 10/24/2022 21:48:00 10/24/20 22 10/24/2022 HEPAT IC/LI LOW PANEL albumin 3.9 g/dL 3.4-5. 0 Not Available [facility] (Lab) [address] [place], [address], 10/24/2022 21:48:00 10/24/20 22 10/24/2022 HEPAT IC/LI LOW PANEL globulin 2.4 g/dL 2.6-4. 2 low Not Available [facility] (Lab) [address] [place], [address], 10/24/2022 21:48:00 10/24/20 22 10/24/2022 HEPAT IC/LI LOW PANEL A/G ratio 1.6 ratio 1.0-2. 0 Not Available [facility] (Lab) [address] [place], [address], 10/24/2022 21:48:00 10/24/20 22 10/24/2022 LIPID PANEL cholesterol 177 mg/dL 140-19 9 NIH TRACY NSUS RECOM MENDA TION FOR KALEB STERO L: ADULT CHILD LOW RISK: <200 <170 BORDE RLINE : <200- 239 ----- HIGH RISK: >240 >200 Not Available [facility] (Lab) [address] [place], [address], 10/24/2022 21:47:37 10/24/20 22 10/24/2022 LIPID PANEL triglyceride s 102 mg/dL 0-150 NIH TRACY NSUS REPOR T RECOM MENDA TION FOR TRIGL YCERI ANTHONY: ADULT CHILD LOW RISK: <150 ----- BODER LINE: 150-1 99 ----- HIGH RISK: >200 ----- Not Available [facility] (Lab) [address] [place], [address], 10/24/2022 21:47:37 10/24/20 22 10/24/2022 LIPID PANEL HDL cholesterol 62 mg/dL 40- Not Available [facility] (Lab) [address] [place], [address], 10/24/2022 21:47:37 10/24/20 22 10/24/2022 LIPID PANEL [...] WILL NOT BE REPOR FERNANDO. Not Available [facility] (Lab) [address] [place], [address], 10/24/2022 21:47:37 10/24/20 22 10/24/2022 URIC ACID SERUM uric acid 7.7 mg/dL 3.5-8. 5 Not Available [facility] (Lab) [address] [place], [address], 10/24/2022 21:47:34 10/24/20 22 10/24/2022 BASIC METAB OLIC PANEL sodium 138 mmol/ L 137-14 5 Not Available [facility] (Lab) [address] [place], [address], 10/24/2022 21:47:32 10/24/20 22 10/24/2022 BASIC METAB OLIC PANEL potassium 4.5 mmol/ L 3.5-5. 1 Not Available [facility] (Lab) [address] [place], [address], 10/24/2022 21:47:32 10/24/20 22 10/24/2022 BASIC METAB OLIC PANEL chloride 109 mmol/ L 98-107 high Not Available [facility] (Lab) [address] [place], [address], 10/24/2022 21:47:32 10/24/20 22 10/24/2022 BASIC METAB OLIC PANEL carbon dioxide 22 mmol/ L 22-30 Not Available [facility] (Lab) [address] [place], [address], 10/24/2022 21:47:32 10/24/20 22 10/24/2022 BASIC METAB OLIC PANEL anion gap 11.5 mmol/ L 14-22 low Not Available [facility] (Lab) [address] [place], [address], 10/24/2022 21:47:32 10/24/20 22 10/24/2022 BASIC METAB OLIC PANEL glucose 106 mg/dL 70-99 high Not Available [facility] (Lab) [address] [place], [address], 10/24/2022 21:47:32 10/24/20 22 10/24/2022 BASIC METAB OLIC PANEL BUN 13 mg/dL 8-19 Not Available [facility] (Lab) [address] [place], [address], 10/24/2022 21:47:32 10/24/20 22 10/24/2022 BASIC METAB OLIC PANEL creatinine 1.02 mg/dL 0.66-1 .25 Not Available [facility] (Lab) [address] [place], [address], 10/24/2022 21:47:32 10/24/20 22 10/24/2022 BASIC METAB OLIC PANEL GFR >60 Refer ence Range : [place] GFR Healt hy Adult : >60 [...] calcu lator is avail able on the [facility] websi te: https ://ww w.kid jefferson.o rg/pr ofess ional s/kdo qi/gf r_cal culat or Not Available [facility] (Lab) [address] [place], [address], 10/24/2022 21:47:32 10/24/20 22 10/24/2022 BASIC METAB OLIC PANEL calcium 8.6 mg/dL 8.4-10 .2 Not Available [facility] (Lab) [address] [place], [address], 10/24/2022 21:47:32 02/07/20 24 02/07/2024 CBC/C OMPLE TE BLD COUNT W/DIF F white blood cells 7.1 x10'3 /uL 4.2-10 .8 Not Available [facility] (Lab) [address] [place], [address], 02/07/2024 19:09:31 02/07/20 24 02/07/2024 CBC/C OMPLE TE BLD COUNT W/DIF F red blood cells 4.77 x10'6 /uL 4.10-5 .80 Not Available [facility] (Lab) [address] [place], [address], 02/07/2024 19:09:31 02/07/20 24 02/07/2024 CBC/C OMPLE TE BLD COUNT W/DIF F hemoglobin 14.8 g/dL 13.2-1 7.0 Not Available [facility] (Lab) [address] [place], [address], 02/07/2024 19:09:31 02/07/2002/07/2024 CBC/C OMPLE TE BLD COUNT W/DIF F hematocrit 44.3 % 39.3-5 0.0 Not Available [facility] (Lab) [address] [place], [address], 02/07/2024 19:09:31 02/07/2002/07/2024 CBC/C OMPLE TE BLD COUNT W/DIF F mean red cell volume 92.9 fL 80.0-9 7.0 Not Available [facility] (Lab) [address] [place], [address], 02/07/2024 19:09:31 02/07/2002/07/2024 CBC/C OMPLE TE BLD COUNT W/DIF F mean red cell hemoglobin 31.0 pg 27.0-3 3.0 Not Available [facility] (Lab) [address] [place], [address], 02/07/2024 19:09:31 02/07/2002/07/2024 CBC/C OMPLE TE BLD COUNT W/DIF F mean RBC HGB concentratio n 33.4 g/dL 31.0-3 6.0 Not Available [facility] (Lab) [address] [place], [address], 02/07/2024 19:09:31 02/07/20 24 02/07/2024 CBC/C OMPLE TE BLD COUNT W/DIF F red cell distribution width 13.8 % 11.8-1 5.5 Not Available [facility] (Lab) [address] [place], [address], 02/07/2024 19:09:31 02/07/20 24 02/07/2024 CBC/C OMPLE TE BLD COUNT W/DIF F platelets 178 x10'3 /uL 150-40 0 Not Available [facility] (Lab) [address] [place], [address], 02/07/2024 19:09:31 02/07/20 24 02/07/2024 CBC/C OMPLE TE BLD COUNT W/DIF F mean platelet volume 11.9 fL 9.0-12 .4 Not Available [facility] (Lab) [address] [place], [address], 02/07/2024 19:09:31 02/07/20 24 02/07/2024 CBC/C OMPLE TE BLD COUNT W/DIF F neutrophils 65.4 % 39.0-7 2.0 Not Available [facility] (Lab) [address] [place], [address], 02/07/2024 19:09:31 02/07/20 24 02/07/2024 CBC/C OMPLE TE BLD COUNT W/DIF F lymphocytes 24.4 % 16.0-4 7.0 Not Available [facility] (Lab) [address] [place], [address], 02/07/2024 19:09:31 02/07/20 24 02/07/2024 CBC/C OMPLE TE BLD COUNT W/DIF F monocytes 7.0 % 5.0-12 .0 Not Available [facility] (Lab) [address] [place], [address], 02/07/2024 19:09:31 02/07/20 24 02/07/2024 CBC/C OMPLE TE BLD COUNT W/DIF F eosinophils 2.4 % 1.0-7. 0 Not Available [facility] (Lab) [address] [place], [address], 02/07/2024 19:09:31 02/07/20 24 02/07/2024 CBC/C OMPLE TE BLD COUNT W/DIF F basophils 0.7 % 0.0-2. 0 Not Available [facility] (Lab) [address] [place], [address], 02/07/2024 19:09:31 02/07/20 24 02/07/2024 CBC/C OMPLE TE BLD COUNT W/DIF F immature granulocytes 0.1 % 0.00-0 .50 Not Available [facility] (Lab) [address] [place], [address], 02/07/2024 19:09:31 02/07/20 24 02/07/2024 CBC/C OMPLE TE BLD COUNT W/DIF F neutrophils, absolute count 4.65 x10'3 /uL 1.5-8. 0 Not Available [facility] (Lab) [address] [place], [address], 02/07/2024 19:09:31 02/07/20 24 02/07/2024 CBC/C OMPLE TE BLD COUNT W/DIF F lymphocytes, absolute count 1.74 x10'3 /uL 1.07-3 .43 Not Available [facility] (Lab) [address] [place], [address], 02/07/2024 19:09:31 02/07/20 24 02/07/2024 CBC/C OMPLE TE BLD COUNT W/DIF F monocytes, absolute count 0.50 x10'3 /uL 0.29-0 .99 Not Available [facility] (Lab) [address] [place], [address], 02/07/2024 19:09:31 02/07/20 24 02/07/2024 CBC/C OMPLE TE BLD COUNT W/DIF F eosinophils, absolute count 0.17 x10'3 /uL 0.02-0 .53 Not Available [facility] (Lab) [address] [place], [address], 02/07/2024 19:09:31 02/07/20 24 02/07/2024 CBC/C OMPLE TE BLD COUNT W/DIF F basophils, absolute count 0.05 x10'3 /uL 0.01-0 .08 Not Available [facility] (Lab) [address] [place], [address], 02/07/2024 19:09:31 02/07/20 24 02/07/2024 CBC/C OMPLE TE BLD COUNT W/DIF F immature granulocytes ,absolute 0.01 x10'3 /uL 0.00-0 .05 Not Available [facility] (Lab) [address] [place], [address], 02/07/2024 19:09:31 02/07/20 24 02/07/2024 CBC/C OMPLE TE BLD COUNT W/DIF F nucleated red blood cells 0.0 % -0 Not Available [facility] (Lab) [address] [place], [address], 02/07/2024 19:09:31 02/07/20 24 02/07/2024 CBC/C OMPLE TE BLD COUNT W/DIF F NRBC# 0.00 x10'3 /uL Not Available [facility] (Lab) [address] [place], [address], 02/07/2024 19:09:31 02/07/20 24 02/07/2024 IRON/ TIBC PANEL total iron binding capacity 326 mcg/d L 265-47 5 Not Available [facility] (Lab) [address] [place], [address], 02/07/2024 19:34:19 02/07/20 24 02/07/2024 IRON/ TIBC PANEL % transferrin saturation 25 % 20-55 Not Available [facility] (Lab) [address] [place], [address], 02/07/2024 19:34:19 02/07/20 24 02/07/2024 IRON/ TIBC PANEL unsaturated iron bind capacity 244 mcg/d L 126-38 2 Not Available [facility] (Lab) [address] [place], [address], 02/07/2024 19:34:19 02/07/20 24 02/07/2024 IRON/ TIBC PANEL iron 82 mcg/d L 42-175 Not Available [facility] (Lab) [address] [place], [address], 02/07/2024 19:34:19 02/07/20 24 02/07/2024 RHEUM ATOID FACTO R rf <8.6 IU/mL 0.0-11 .9 Not Available [facility] (Lab) [address] [place], [address], 02/07/2024 19:20:00 02/07/20 24 02/07/2024 BASIC METAB OLIC PANEL sodium 137 mmol/ L 137-14 5 Not Available [facility] (Lab) [address] [place], [address], 02/07/2024 19:20:35 02/07/20 24 02/07/2024 BASIC METAB OLIC PANEL potassium 4.6 mmol/ L 3.5-5. 1 Not Available [facility] (Lab) [address] [place], [address], 02/07/2024 19:20:35 02/07/20 24 02/07/2024 BASIC METAB OLIC PANEL chloride 109 mmol/ L 98-107 high Not Available [facility] (Lab) [address] [place], [address], 02/07/2024 19:20:35 02/07/20 24 02/07/2024 BASIC METAB OLIC PANEL carbon dioxide 24 mmol/ L 22-30 Not Available [facility] (Lab) [address] [place], [address], 02/07/2024 19:20:35 02/07/20 24 02/07/2024 BASIC METAB OLIC PANEL anion gap 8.6 mmol/ L 14-22 low Not Available [facility] (Lab) [address] [place], [address], 02/07/2024 19:20:35 02/07/20 24 02/07/2024 BASIC METAB OLIC PANEL glucose 108 mg/dL 70-99 high Not Available [facility] (Lab) [address] [place], [address], 02/07/2024 19:20:35 02/07/20 24 02/07/2024 BASIC METAB OLIC PANEL BUN 14 mg/dL 8-19 Not Available [facility] (Lab) [address] [place], [address], 02/07/2024 19:20:35 02/07/20 24 02/07/2024 BASIC METAB OLIC PANEL creatinine 1.00 mg/dL 0.66-1 .25 Not Available [facility] (Lab) [address] [place], [address], 02/07/2024 19:20:35 02/07/20 24 02/07/2024 BASIC METAB OLIC PANEL GFR >60 Refer ence Range : [place] GFR Healt hy Adult : >60 [...] calcu lator is avail able on the [facility] websi te: [email or web address] :[email or web address].kid [email or web address] [email or web address] ional [email or web address] qi/gf r_cal culat or Not Available [facility] (Lab) [address] [place], [address], 02/07/2024 19:20:35 02/07/20 24 02/07/2024 BASIC METAB OLIC PANEL calcium 9.0 mg/dL 8.4-10 .2 Not Available [facility] (Lab) [address] [place], [address], 02/07/2024 19:20:35 02/07/20 24 02/07/2024 URIC ACID SERUM uric acid 7.1 mg/dL 3.5-8. 5 Not Available [facility] (Lab) [address] [place], [address], 02/07/2024 19:20:37 02/07/20 24 02/07/2024 LIPID PANEL cholesterol 179 mg/dL 140-19 9 [facility] TRACY NSUS RECOM MENDA TION FOR KALEB STERO L: ADULT CHILD LOW RISK: <200 <170 BORDE RLINE : <200- 239 ----- HIGH RISK: >240 >200 Not Available [facility] (Lab) [address] [place], [address], 02/07/2024 19:20:40 02/07/20 24 02/07/2024 LIPID PANEL triglyceride s 61 mg/dL 0-150 NIH TRACY NSUS REPOR T RECOM MENDA TION FOR TRIGL YCERI ANTHONY: ADULT CHILD LOW RISK: <150 ----- BODER LINE: 150-1 99 ----- HIGH RISK: >200 ----- Not Available [facility] (Lab) [address] [place], [address], 02/07/2024 19:20:40 02/07/20 24 02/07/2024 LIPID PANEL HDL cholesterol 64 mg/dL 40- Not Available [facility] (Lab) [address] [place], [address], 02/07/2024 19:20:40 02/07/20 24 02/07/2024 LIPID PANEL [...] WILL NOT BE REPOR FERNANDO. Not Available [facility] (Lab) [address] [place], [address], 02/07/2024 19:20:40 02/07/20 24 02/07/2024 HEPAT IC/LI LOW PANEL alkaline phosphatase 83 U/L 38-126 Not Available [facility] (Lab) [address] [place], [address], 02/07/2024 19:20:42 02/07/20 24 02/07/2024 HEPAT IC/LI LOW PANEL alanine aminotransfe rase 21 U/L 0-50 Not Available [facility] (Lab) [address] [place], [address], 02/07/2024 19:20:42 02/07/20 24 02/07/2024 HEPAT IC/LI LOW PANEL aspartate aminotransfe rase 27 U/L 15-46 Not Available [facility] (Lab) [address] [place], [address], 02/07/2024 19:20:42 02/07/20 24 02/07/2024 HEPAT IC/LI LOW PANEL bilirubin, total 0.30 mg/dL 0.20-1 .30 Not Available [facility] (Lab) [address] [place], [address], 02/07/2024 19:20:42 02/07/20 24 02/07/2024 HEPAT IC/LI LOW PANEL bilirubin, conjugated (direct) 0.00 mg/dL 0.00-0 .30 Not Available [facility] (Lab) [address] [place], [address], 02/07/2024 19:20:42 02/07/20 24 02/07/2024 HEPAT IC/LI LOW PANEL biliurubin,u ncong. (indirect) 0.10 mg/dL 0.00-1 .1 Not Available [facility] (Lab) [address] [place], [address], 02/07/2024 19:20:42 02/07/20 24 02/07/2024 HEPAT IC/LI LOW PANEL total protein 6.7 g/dL 6.3-8. 2 Not Available [facility] (Lab) [address] [place], [address], 02/07/2024 19:20:42 02/07/20 24 02/07/2024 HEPAT IC/LI LOW PANEL albumin 4.1 g/dL 3.4-5. 0 Not Available [facility] (Lab) [address] [place], [address], 02/07/2024 19:20:42 02/07/20 24 02/07/2024 HEPAT IC/LI LOW PANEL globulin 2.6 g/dL 2.6-4. 2 Not Available [facility] (Lab) [address] [place], [address], 02/07/2024 19:20:42 02/07/20 24 02/07/2024 HEPAT IC/LI LOW PANEL A/G ratio 1.6 ratio 1.0-2. 0 Not Available [facility] (Lab) [address] [place], [address], 02/07/2024 19:20:42 02/07/20 24 02/07/2024 VITAM IN D 25-HY DROXY vd25oh 25.3 NG/mL 30-100 low Vitam in D Statu s: Defic ient: <20 ng/mL Insuf ficie nt: 20-29 ng/mL Suffi cient : 30-10 0 ng/mL Not Available [facility] (Lab) [address] [place], [address], 02/07/2024 19:35:55 02/07/20 24 02/07/2024 SEDIM ENTAT ION RATE erythrocyte sedimentatio n rate 8 mm/HR 0-20 Not Available [facility] (Lab) [address] [place], [address], 02/07/2024 19:41:24 02/07/20 24 02/07/2024 PSA SCREE N PSA medicare screen 2.53 NG/mL 0.00-4 .00 Not Available [facility] (Lab) [address] [place], [address], 02/07/2024 19:56:35 02/07/20 24 02/07/2024 THAO TIN ferritin 122 NG/mL 17.9-4 64 Not Available [facility] (Lab) [address] [place], [address], 02/07/2024 19:58:06 02/07/20 24 02/12/2024 BRADY BY IFA RFX TITER /VANESSA MARYANN antinuclear antibodies, ifa Positi ve abnormal Negat stuart <1:80 Borde rline 1:80 Posit stuart >1:80 Perfo rmed at: CB [facility] n [address] [facility], [place] [id number] [facility]8 Lab Direc tor: Emre villanueva PhD, Phone : [phone] Not Available [facility] (Lab) [address] [place], [address], 02/12/2024 10:09:22 02/07/20 24 02/12/2024 BRADY BY IFA RFX TITER /VANESSA MARYANN homogeneous pattern 1:320 high ICAP gab quevedo re: AC-1 Not Available [facility] (Lab) [address] [place], [address], 02/12/2024 10:09:22 02/07/20 24 02/12/2024 BRADY BY IFA RFX TITER /VANESSA MARYANN anasp4 Commen t abnormal . [facility] ----- ----- --- [...] mmune Rheum atic Disea se, Undif essence [employer] ctive Tissu e Disea se ----- ----- --- ----- ----- ----- ----- ----- ----- ----- ----- ----- Nucle olar Syste sharlene Scler osis, Scler oderm a-Aut oimmu ne [...] ----- ----- ----- ----- Perfo rmed at: [facility] - [facility] [address] [facility], [place] [address] Lab Direc tor: Emre villanueva PhD, Phone : [phone] Not Available [facility] (Lab) [address] [place], [address], 02/12/2024 10:09:22 05/31/20 22 05/31/2022 MRI, lumba r spine , w/o contr ast [facility] [place] [address] [place] [id number] [phone] Patien t Name: MITZI MISTRY Access ion #: [id number] Sex: M : 1964 2 Locati on: RAD Attend ing Physic sea: ALEXIS PFEIFFER Orderi Physic sea: ALEXIS PFEIFFER Exam Date: 05/31/20 9:41 AM Exam Name: [...] ial broad disc Page 1 of 4 [facility] Ashok ding Name: MITZI MISTRY Access ion #: [id number] Sex: M : 1964 2 Exam Date: 05/31/20 22 9:41 AM Exam [...] endpla te hypert rophy. There is a tacker elastic band ior disc annulu s tear. The AP [...] midlin e. There Page 2 of 4 [facility] t Name: MITZI MISTRY Access ion #: [id number] Sex: M : 1964 2 Exam [...] with multil evel Page 3 of 4 [facility] Name: MITZI MISTRY Access ion #: [id number] Sex: M : 1964 2 Exam Date: 05/31/20 22 9:41 AM Exam [...] MD (CT) (CT) Page 4 of 4 [id number] [facility] (Imaging) [address] [place], [address], 01/25/2023 09:19:54 05/31/20 22 05/31/2022 imagi ng/di agnos tic resul t No observ ation record ed. [id number] [facility] Add On Lab Orders [address] [place], [address], 01/25/2023 09:19:54 Result Notes Documentation Provider Name and Address Organization Details Recorded Time Mri, Lumbar Spine, W/o Contrast : [facility] [address] [place] [address] Patient Name: MITZI OROZCO Sex: M : 1965 Location: [facility] Attending Physician: EDEL ROMAN Ordering Physician: EDEL ROMAN Exam Date: 05/31/2022 9:41 AM Exam Name: MRI L SPINE WO Admitting Diagnosis(es): RADIOLOGY REPORT - FINAL EXAM: MRI L SPINE WO HISTORY: low back pain 56-year-old male with low back pain, left lower extremity sciatica symptoms. COMPARISON: Radiographs of the lumbar spine dated 04/15/2022. TECHNIQUE: Multiplanar multisequence noncontrast MR images of the lumbar spine were performed. FINDINGS: No fracture or listhesis are identified in the lumbar spine. The conus terminates at L1. T11-T12: There is loss of disc height. There is a circumferential broad disc Page 1 of 4 [facility] Patient Name: MITZI OROZCO Sex: M : 1965 Exam Date: 05/31/2022 9:41 AM Exam Name: MRI L SPINE WO Admitting Diagnosis(es): bulge with endplate hypertrophy. There are Modic type 2 changes in the adjacent endplates, greater anteriorly. There are Schmorl's nodes in the adjacent endplates. There is a circumferential broad disc bulge with endplate hypertrophy. There is a posterior disc annulus tear. The AP dimension of the spinal canal measures 5 mm. There is signal abnormality of the cervical spinal cord at this level measuring 11 mm longitudinal (image 9, series 3). There is bilateral facet hypertrophy. There is significant neural foraminal stenosis bilaterally, greater on the left. T12-L1: There is a minimal circumferential broad disc bulge. The AP dimension of the spinal canal measures 7.9 mm. There is bilateral facet hypertrophy. No significant neural foraminal stenosis bilaterally. 11 mm longitudinal. L1-L2: There is disc desiccation and near complete loss of disc height. Probable vacuum phenomenon in the disc. There is irregularity and edema of the adjacent endplates. There is a circumferential broad disc bulge with endplate hypertrophy, most prominent in the left foraminal region. There is bilateral facet hypertrophy. The AP dimension of the spinal canal measures 6 mm, with near complete effacement of CSF space. There is mild right and moderate left neural foraminal stenosis. L2-L3: There is near complete loss of disc height. Probable vacuum phenomenon in the disc. There is a small Schmorl's node in the L3 superior endplate. There are Modic type 2 changes in the adjacent endplates. There is a circumferential broad disc bulge with endplate hypertrophy. There is a superimposed left paracentral disc herniation measuring 8 mm AP x 11 mm transverse x 10 mm longitudinal (image 9, series 3; image 14, series 5). The AP dimension of the spinal canal is narrowed to 6 mm in the midline. There Page 2 of 4 [facility] Patient Name: MITZI OROZCO Sex: M : 1965 Exam Date: 05/31/2022 9:41 AM Exam Name: MRI L SPINE WO Admitting Diagnosis(es): is effacement of the lateral recesses, greater on the left. There is bilateral facet and ligamentum flavum hypertrophy. There is mild bilateral neural foraminal stenosis. L3-L4: There is loss of disc height. There is a Schmorl's node in the L4 superior endplate. There are mild Modic type 2 changes in the adjacent endplates. There is a circumferential broad disc bulge with endplate hypertrophy, most prominent in the right foraminal region. There is bilateral facet and ligamentum flavum hypertrophy, greater on the right. The AP dimension of the spinal canal measures 6 mm in the midline. There is moderate to severe right and mild left neural foraminal stenosis. L4-L5: There is a circumferential broad disc bulge with endplate hypertrophy. There is a small L4 superior endplate Schmorl's node. There are mild Modic type 1 and 2 changes of the adjacent endplates, greater on the right. There is bilateral facet and ligamentum flavum hypertrophy. The AP dimension of the spinal canal measures 5.5 mm. There is moderate right and mild left neural foraminal stenosis. L5-S1: There is a mild circumferential broad disc bulge. No significant spinal canal stenosis. There is bilateral facet and ligamentum flavum hypertrophy. A synovial cyst extends anteromedially from the left facet just below the level of the disc, measuring 10 x 5.5 mm axially (30, series 5), effacing the left lateral recess. There is mild right and moderate left neural foraminal stenosis. IMPRESSION: 1. No fracture of the lumbar spine. 2. Advanced degenerative disc disease and facet arthropathy with multilevel Page 3 of 4 [facility] Patient Name: MITZI OROZCO Sex: M : 1965 Exam Date: 05/31/2022 9:41 AM Exam Name: MRI L SPINE WO Admitting Diagnosis(es): significant neural foraminal stenosis as detailed above, including T11-T12 bilaterally; L1-L2 on the left; L3-L4 on the right; L4-L5 on the right; L5-S1 on the left. 3. Varying degrees of spinal canal stenosis, most severe at T11-T12, L1-L2, L2-L3, L3-L4, and L4-L5. At the T11-T12 level, there is mass effect on the distal spinal cord with signal abnormality of the spinal cord measuring 11 mm longitudinal. Some of this may be due to congenitally narrow spinal canal. Recommend spinal surgery consultation if not already obtained. 4. L2-L3 left paracentral disc herniation measures 11 mm transverse x 8 mm AP. L5-S1 left synovial cyst measures 10 x 5.5 mm axially. These cause partial effacement of the left lateral recesses and may impinge on the left L3 and S1 nerve roots. Created and electronically signed by: David Stephen MD Signed Date: 05/31/2022 4:50 PM (CT) Dictated by: David Stephen MD (CT) (CT) Page 4 of 4 Not Available [facility] 01/25/2023 09:19:55 Problems Name Problem SNOMED Code Status Onset Date Resolution Date Notes Provider Name and Address Organization Details Recorded Time CT of abdomen abnormal 2784964659815 9107 Active Not Available [facility] 3 09:15:57 Capsulitis of metatarsop halangeal joint of left foot 9887339812998 9105 Active 2019 Not Available [facility] 3 09:15:57 Backache 797959064 Active Not Available [facility] 3 09:15:57 Heartburn 14955266 Active 2019 Not Available [facility] 3 09:15:57 Gouty arthropath y 900943738 Active Not Available [facility] 3 09:15:57 Chronic pancreatit is 356425527 Active 2016 Not Available [facility] 3 09:15:57 Gastroesop hageal reflux disease 781902663 Active Not Available [facility] 3 09:15:57 Edema 769619248 Active Not Available [facility] 3 09:15:57 Hypertrigl yceridemia 004393378 Active Not Available [facility] 3 09:15:57 Pain in left foot 1133014118596 07 Active 2019 Not Available [facility] 3 09:15:57 Arthritis 9262210 Active 2019 Not Available [facility] 3 09:15:58 Hypertensi ve disorder 50720711 Active 2019 Not Available [facility] 3 09:15:58 Neuropathy 536254364 Active Not Available [facility] 3 09:15:58 Osteoarthr itis 325982148 Active Not Available [facility] 3 09:15:58 Dizziness 253170099 Active Not Available [facility] 3 09:15:58 Pain in eye 18557430 Active Not Available [facility] 3 09:15:58 Spasm 29985832 Active Not Available [facility] 3 09:15:58 Cough 34327621 Active Not Available [facility] 3 09:15:58 Hyperlipid emia 48963652 Active Not Available [facility] 3 09:15:58 Essential hypertensi on 49880401 Active Not Available [facility] 3 09:15:58 Disorder of skin and/or subcutaneo us tissue 07444733 Active Not Available [facility] 3 09:15:58 Osteoarthr itis of ankle and/or foot 88547414 Active 2019 Not Available [facility] 3 09:15:58 Fatigue 60633184 Active Not Available [facility] 3 09:15:58 Lesion of scalp 780654971383 Active Not Available [facility] 3 09:15:59 Gout 50506277 Active TOPHI Not Available [facility] 3 09:15:59 Seizure 38502492 Active Not Available [facility] 3 09:15:59 Skin lesion 17987839 Active Not Available [facility] 3 09:15:59 Vitamin D deficiency 20551066 Active 2022 Edel Roman MD [address], [place], [address] , [facility] 3 12:36:57 Iron deficiency anemia 74436401 Active 2022 Edel Roman MD [address], [place], [address] , [facility] 3 12:37:11 Abdominal pain 85066694 Active 2022 Edel Roman MD [address], [place], [address] , [facility] 3 12:38:24 Chronic sinusitis 98053950 Active 2022 Edel Roman MD [address], [place], [address] , [facility] 3 12:39:25 Degenerati on of lumbar interverte bral disc 41455037 Active 2022 Edel Roman MD [address], [place], [address] , [place] [facility] 3 12:40:33 Pain of left eye 5153745818921 04 Active 2023 Edel Roman MD [address], [place], [address] , [facility] 4 10:51:26 Cellulitis of periorbita l region of left eye 8315222315124 09 Active 2023 Edel Roman MD [address], [place], [address] , [facility] 4 10:51:47 Pain of multiple joints 84557975 Active 2023 Edel Roman MD [address], [place], [address] , [facility] 4 10:53:38 Insomnia 505648855 Active 2023 Edel Roman MD [address], [place], [address] , [place] [facility] 4 07:50:39 Notes:back and neck problems nerve disease Problem Notes None recorded. Procedures Surgical History Date Name Laterality Status Provider Name and Address Organization Details Recorded Time Colonoscopy completed Not Available [facility] 01/26/20 23 09:13:07 Imaging Results None recorded. Procedure Notes None recorded. Medical Equipment None [...] Not Avai lable pantoprazol e 40 mg tablet,vabihav yed release TAKE 1 TABLET BY MOUTH [...] No t Available Vitals Date Recorded Body height Body mass index (BMI) Body weight Body temperature Heart rate Oxygen saturation Oxygen saturation in Arterial blood by Pulse oximetry Systolic And Diastolic Provider Name and Address Organization Details Last Updated DateTime 4 162.56 cm 37.2 kg/m2 05563.5 4 g 98.3 [degF] 87 /min 98 % 98 % 142/90 mm[Hg] Alverto Pelayo RN [facility] [employer] [facility] 4 10:21:05 Date Recorded Body mass index (BMI) Body height Oxygen saturation Oxygen saturation in Arterial blood by Pulse oximetry Heart rate Body temperature Body weight Systolic And Diastolic Provider Name and Address Organization Details Last Updated DateTime 2 35 kg/m2 162.56 cm 97 % 97 % 63 /min 97.9 [degF] 64085.8 4 g 130/80 mm[Hg] Not Available [facility] 3 09:13:33 Date Recorded Body height Body mass index (BMI) Body weight Body temperature Heart rate Oxygen saturation Oxygen saturation in Arterial blood by Pulse oximetry Systolic And Diastolic Provider Name and Address Organization Details Last Updated DateTime 3 162.56 cm 36.9 kg/m2 26871.3 6 g 97.5 [degF] 67 /min 98 % 98 % 120/80 mm[Hg] Alverto Pelayo RN [facility] [employer] [facility] 3 12:28:20 Date Recorded Body mass index (BMI) Body height Oxygen saturation Oxygen saturation in Arterial blood by Pulse oximetry Heart rate Body temperature Body weight Systolic And Diastolic Provider Name and Address Organization Details Last Updated DateTime 2 35.5 kg/m2 162.56 cm 98 % 98 % 66 /min 97.6 [degF] 90559.6 2 g 116/72 mm[Hg] Not Available [facility] 3 09:13:33 Date Recorded Body mass index (BMI) Body height Oxygen saturation Oxygen saturation in Arterial blood by Pulse oximetry Heart rate Body temperature Body weight Systolic And Diastolic Provider Name and Address Organization Details Last Updated DateTime 2 35.2 kg/m2 162.56 cm 98 % 98 % 69 /min 97.5 [degF] 77643.4 4 g 118/76 mm[Hg] Not Available [facility] 3 09:13:33 Social History Question Answer Notes LastModified by [employer] Details LastModified Time Tobacco Smoking Status Never Smoker Not Available [facility] 01/25/2023 09:12:47 Do You Have An Advance Directive? No [id number] Information not available 01/25/2023 What Is Your Level Of Caffeine Consumption? Occasional [id number] Information not available 01/25/2023 How Much Tobacco Do You Chew? None [id number].[id number] 6105 Information not available 01/25/2023 In The 14 Days Before Symptom Onset, Have You Had Close Contact With A Laboratory-confirm ed COVID-19 While That Case Was Ill? No [id number] Information not available 01/25/2023 In The 14 Days Before Symptom Onset, Have You Had Close Contact With A Person Who Is Under Investigation For COVID-19 While That Person Was Ill? No [id number].[id number] Information not available 01/25/2023 What Type Of Diet Are You Following? REGULAR [id number].[id number] 8410 Information not available 01/25/2023 Which Illicit Or Recreational Drugs Have You Used? No MIGRATION.273024 2604 Information not available 01/25/2023 What Was The Date Of Your Most Recent Tobacco Screening? 04/12/2021 [id number] 1369 Information not available 01/25/2023 How Much Tobacco Do You Smoke? No MIGRATION.069900 7138 Information not available 01/25/2023 Do You Use Sunscreen Routinely? Yes MIGRATION.081773 2753 Information not available 01/25/2023 Have You Recently Traveled Abroad? No [id number].[id number] 8835 Information not available 01/25/2023 Sex: Unknown Functional Status Question Answer Note LastModified by [employer] Details LastModified Time What is your level of alcohol consumption? Occasional [id number] Information not available 01/25/2023 Do you or have you ever used smokeless tobacco? 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 Never used electronic cigarettes MIGRATION.[id number] 026 Information not available 01/25/2023 What is your exercise level? Moderate MIGRATION.[id number] 026 Information not available 01/25/2023 Mental Status None recorded. Family History Relationship Description Onset Age of this Age Resolved Age Notes LastModified by Organization Details LastModified Time Mother Cerebrovascu lar accident [id number] Not available 01/25/2023 09:13:07 Mother Diabetes mellitus [id number].987 [id number] Not available 01/25/2023 09:13:07 Maternal Grandmother Diabetes mellitus MIGRATION.211 [id number] Not available 01/25/2023 09:13:07 Notes:NO ENT Medical [...] HAVE YOU BEEN HOSPITALIZED OR SEEN IN [facility] IN THE PAST YEAR ? N ATHEROSCLEROSIS [...] SNOMED-CT Code Diagnosis ICD10 Code Diagnosis Note [id number] Edel Roman MD [facility] Primary Care [address] [place] [address] 04/12/2021 00:00:00 04/13/2021 07:49:54 [id number] Edel Roman MD [facility] Primary Care [address] [place] [address] 04/29/2021 00:00:00 05/25/2021 20:48:16 [id number] Edel Roman MD [facility] Primary Care [address] [place] [address] 06/01/2021 00:00:00 06/01/2021 17:45:06 [id number] _ATHN_MIGR ATION_1 _ATHENA_M IGRATION_ DEFAULT_1 _1 , 06/09/2021 00:00:00 06/09/2021 17:01:51 [id number] Edel Roman MD [facility] Primary Care [address] [place] [address] 09/01/2021 00:00:00 09/01/2021 17:38:05 [id number] [facility] ic_[facility] _ATHENA_M IGRATION_ DEFAULT_1 _1 , 09/10/2021 00:00:00 09/10/2021 11:03:37 [id number] Edel Roman MD [facility] Primary Care [place] [address] [facility] [address] [place] [address] 12/06/2021 00:00:00 12/06/2021 14:56:31 [id number] Edel Roman MD [facility] Primary Care [place] [address] [facility] [address] [place] [address] 05/25/2022 00:00:00 05/25/2022 09:52:18 [id number] Edel Roman MD [facility] Primary Care [place] [address] [place] [address] [address] [place] [address] 09/05/2022 00:00:00 09/05/2022 16:40:17 [id number] Edel Roman MD [facility] Primary Care [place] [address] [facility] [address] [place] [address] 10/24/2022 00:00:00 10/24/2022 09:28:49 [id number] Edel Roman MD [facility] Primary Care [place] [address] [facility] [address] [place] [address] 07/05/2023 12:20:49 07/05/2023 13:45:24 Essential hypertension 93112195 I10 in good control Gout 93291541 M10.9 no current flarecheck uric acid level Hyperlipidemia 53652476 E78.5 Z79.899 Vitamin D deficiency 347 12720 E55.9 Screening for malignant neoplasm of prostate 032771570 Z12.5 Iron defic iency anemia 97259295 D50.9 Abdominal pain 37152771 R10.9 Chronic sinusitis 243157 00 J32.9 recommend saline nasal irrigation amoxicilli n bid x 7 daysENT referral given Degenerati on of lumbar intervertebral disc 42875116 M51.36 refill givenpt uses this sparingly, last refilled t understand s this medication has risk for abuse/depe ndence and agrees to take it only as prescribed and to guard from loss/theft [place] prescript[place] website reviewed [id number] Edel Roman MD [facility] Primary Care [place] [address] [facility] [address] [place] [address] 02/07/2024 10:16:43 02/07/2024 11:12:44 Degeneration of lumbar intervertebral disc 97299264 M51.36 refill givenpt uses this sparingly, last refilled 07/19Pt understand s this medication has risk for abuse/depe ndence and agrees to take it only as prescribed and to guard from loss/theft [place] prescript[place] website reviewed Essential hypertension 87835268 I10 in good control Gout 41698268 M10.9 no current flarecheck uric acid level Hyperlipidemia 13893802 E78.5 Z79.899 Vitamin D deficiency 347 92014 E55.9 Screening for malignant neoplasm of prostate 056498103 Z12.5 Iron defic iency anemia 98787734 D50.9 Pain of left eye 3378598 001 29214 H57.12 Cellulitis of periorbital region of left eye 0991650260 83029 L03.213 optho referral givencepha lexin 500 mg po bid x 7 dayswarm compresses , good handwashin gtriamcino lone bid prn Pain of mu ltiple joints [id number] M25.50 Health Concerns Section Related Observation LastModified by Organization Detai ls LastModified Time None Recorded Concern Status LastModified by Organization Details LastModified Time None Recorded Advance Directives Directive N: Payers Insurance Date Sequence Insurance Name Policy Number Policy [place] Covered Member ID [place]man Member ID Guarantor Name 02/26/2024 1 [employer] - DOS ON OR AFTER 21 (MEDICAID REPLACEMENT - HMO) Mitzi Orozco [id number] Mitzi Orozco Notes Date Note Type Note Provider Name and Address Organization Details Recorded Time 07/05/2023 text/html here to f/u having increased arthritis pain and back pain no chest pain or sob. He does have some epigastric pain, wants his pancreas checked has chronic sinusitis and has foul taste in mouth/foul smell in nose Edel Roman MD [address], [place] [address], [place], [address], [facility] 07/05/2023 13:05:08 02/07/2024 text/html here to f/u [...] pain, does not want to see ortho Edel Roman MD [address], [address], [place], [address], [facility] 02/25/2024 07:47:37
--- OUTSIDE RECORDS SUMMARY | 2025-06-11 15:30 | XMS_ITS | Clinical Summary ---
Author Organization [facility] Address [address] [place] [address] Care Team Providers Care Rn Testing Name Role Phone Ana Lilia Roman MD Primary Care Provider [phone] Source Comments [facility],non-owned Affiliates and Associated Physician Practices is amultiple site organization consisting of ambulatory clinics and hospital sitesin [place], [place], [place] and [place]. This disclosure is being madepursuant to the Care Everywhere program and may not contain all information available regarding this patient. Last updated 18.[facility] Allergies No known active allergies Medications * Be aware that medications may not be up to date on this document. Alwaysverify current medications with the patient. albuterol HFA (Proventil; Ventolin; Proair) 108 (90 [...] (one) tablet by mouth 3 times daily 2 Active furosemide (Lasix) 20 MG tablet furosemide 20 mg tablet Active gabapentin (Neurontin) 300 MG capsule Take 2 (two) capsules by mouth 3 times daily 2 Active HYDROcodone-kaleb taminophen ([place]) 10-325 MG tablet Take 1 (one) tablet by mouth every 6 hours as needed pain 2 Active indomethacin (Indocin) 50 MG capsule indomethacin [...] (one) capsule by mouth 3 times daily 2 Active traZODone (Desyrel) 50 MG tablet trazodone [...] at Not on file Legal Sex Male 12:48 PM CDT Gender Identity Not on file Sexual Orientation Not on file Last Filed Vital Signs Vital Sign Reading Time Taken Comments Blood Pressure 135/84 11/14/2022 1:08 PM [employer]EWABLE [employer]ER[employer] TECHNICIAN Pulse 67 11/14/2022 1:08 PM [employer]ENEWABLE ENERGY TECHNICIAN Temperature 36.8 C (98.2 F) 11/14/2022 1:08 PM RENEWABLE ENERGY TECHNICIAN Respiratory Rate - - Oxygen Saturation 100% 11/14/2022 1:08 PM RENEWABLE ENERGY TECHNICIAN Inhaled Oxygen Concentration - - Weight 92.5 kg (204 lb) 11/14/2022 1:08 PM RENEWABLE ENERGY TECHNICIAN Height 175.3 cm (5' 9) 11/14/2022 1:08 PM RENEWABLE ENERGY TECHNICIAN Body Mass Index 30.13 11/14/2022 1:08 PM RENEWABLE ENERGY TECHNICIAN Plan of Treatment Health Maintenance Due Date [...] season) 2024 DEPRESSION SCREENING 11/27/2024 INFLUENZA VACCINE (#1) 2025 Respiratory Syncytial Virus (RSV) Vaccine Pt: [...] on patient's age to complete this topic Insurance Care Teams Rn Testing Relationship Specialty Start Date End Date Ana Lilia Roman MD [address] [place] [address] [place] [address] PCP - General 09/19/22
== END 2025-06-11 15:26 | disposition home or self-care (01) ==
PROVIDERS: PCP Emergency Medicine; Visit Provider Emergency Medicine
DX: M17.11 Unilateral primary osteoarthritis, right knee (principal); M25.461 Effusion, right knee; M65.98 Unspecified synovitis and tenosynovitis, other site
CPT/HCPCS: 73560